=== PATIENT | female | born 1950 | race Caucasian/White ===

== ENCOUNTER → 2016-10-05 | Outpatient (REF) | payer MEDICARE ==
[~2016-10-05] MED LIST: ALEN70SO PO; ATOR1TAB21 PO; CALCTAB93 PO; CARV6.25 PO; D 50CAP PO; LEVOPOW21; MAG 64 PO; MAGN400T5 PO; VITAMIN B2
== END ==
LOC: M LAB REF 16:11
PROVIDERS: ATTEND Internal Medicine Medical Oncology
DX: C18.9 Malignant neoplasm of colon, unspecified (principal)

== ENCOUNTER → 2016-10-25 | Outpatient (CLI) | payer MEDICARE ==
--- NOTE | 2016-10-25 17:18 | REP ---
PET/CT: History: Colon cancer restaging. Comparisons: Most recent comparison PET-CT study is from May 31, 2016. This showed hypermetabolic metastatic foci in the liver, left lung, right anterior chest wall and right epicardial lymph node. Question right pleural disease. TECHNIQUE: 66 minutes following the intravenous injection of a 8.1 mCi dose of F-18 FDG, three-dimensional PET scintigraphy is acquired from the skull base to the proximal thighs. Triplanar noncontrast CT scanning is acquired through the same anatomic range for attenuation correction, and image registration with scan parameters optimized to minimize radiation exposure to the patient. PET scintigraphy and CT datasets were fused and displayed on a workstation with multiplanar and projection display capability. PET/CT Findings: PET-CT shows significant improvement. The previously noted hypermetabolic lung nodule has regressed. Maximum SUV value here is no longer hypermetabolic, 1.1. No other abnormal hypermetabolic uptake is seen within the chest. This nodule in the left upper lobe is still visible measuring 7 mm. On PET/CT from 05/31/2016, CT images it measured 10 mm. No other lung nodule is appreciated. There is some linear fibrosis or discoid atelectasis in the lower lobes. The head and neck soft tissues are unremarkable. There is an Bjddba-G-Rcxv catheter noted in place on the left. There are two small hypermetabolic foci in the liver, one anteriorly in the right lobe near the dome of the diaphragm with maximizing the value 5.0. This lesion measures 2 cm. The second hypermetabolic focus is anteriorly and laterally in the inferior aspect of the right hepatic lobe. Maximum SUV value here is 7.3 in a focus of increased uptake measuring 1.8 cm. The larger posterior segment right hepatic lobe lesion seen on the recent prior study has regressed. There is a small zone of residual hypermetabolic uptake year with maximum SUV value 3.6. No other abnormal hypermetabolic uptake is seen within the abdomen or pelvis. The previously noted lesions in the right epicardial lymph node and right chest wall are no longer apparent. Impression: Today's PET CT shows significant improvement. There are three residual foci of hypermetabolic uptake in the liver although these appear improved. The left upper lobe lesion has regressed in size and FDG avidity. Right chest wall and epicardial lymph node foci have resolved. Signed by Adama Currie MD 10/25/2016 06:40 P
== END ==
LOC: M RAD 12:24
PROVIDERS: ATTEND Internal Medicine Medical Oncology
DX: C18.9 Malignant neoplasm of colon, unspecified (principal)
CPT/HCPCS: 78815; A9552

== ENCOUNTER → 2016-11-15 | Outpatient (REF) | payer MEDICARE | LOC: M LAB REF 16:32 | PROVIDERS: ATTEND Internal Medicine Medical Oncology | DX: C18.9 Malignant neoplasm of colon, unspecified (principal) ==

== ENCOUNTER → 2016-12-11 | Outpatient (REF) | payer MEDICARE | LOC: M LAB REF 13:15 | PROVIDERS: ATTEND Internal Medicine Medical Oncology | DX: C19 Malignant neoplasm of rectosigmoid junction (principal) ==

== ENCOUNTER → 2017-01-22 | Outpatient (REF) | payer MEDICARE | LOC: M LAB REF 13:06 | PROVIDERS: ATTEND Internal Medicine Medical Oncology | DX: C20 Malignant neoplasm of rectum (principal); C18.9 Malignant neoplasm of colon, unspecified ==

== ENCOUNTER → 2017-03-05 | Outpatient (REF) | payer MEDICARE | LOC: M LAB REF 13:05 | PROVIDERS: ATTEND Internal Medicine Medical Oncology | DX: C18.9 Malignant neoplasm of colon, unspecified (principal) ==

== ENCOUNTER → 2017-03-29 | Outpatient (CLI) | payer MEDICARE ==
[~2017-03-29] MED LIST changes: +GASTROGRAFIN SOLUTION 30ML (Q9963) As Ordered ONE; +ISOVUE-370 76% 100ML VIAL (Q9967) As Ordered ONE
--- NOTE | 2017-03-29 14:32 | REP ---
CT of the chest with IV contrast: Comparison is 2015. The patients known left upper lobe lung nodule is today identified on image 35 and measures 8 mm (previously 11 mm). No other lung nodules or masses are identified. There are no pleural effusions. There is partial collapse/infiltrate in the right middle lobe as an interval change. There appears to be inspissated material in the right middle lobe bronchus as an interval change. There is discoid atelectasis versus fibro linear scarring in the right lower lobe as an interval. There is no hilar or mediastinal adenopathy. No axillary median or adenopathy. The thoracic aorta is unremarkable. Cardiac size is normal. There is no pericardial effusion. There are no lytic, blastic or destructive skeletal changes. Impression: The patient has a known left upper lobe lung nodule has decreased in size slightly. There is no atelectasis/infiltrate of the right middle lobe. There is inspissated material in the right middle lobe bronchus. There is discoid atelectasis versus scarring in the right lower lobe. Signed by Drew Segura MD 03/29/2017 02:23 P
--- NOTE | 2017-03-29 14:43 | REP ---
Clinical: Colon cancer for restaging. Technique: Axial contrast enhanced images from the lung bases to the pubic symphysis using oral and 100 ml Isovue 370 intravenous contrast material with precontrast and delayed images of the abdomen as well as coronal and sagittal re-formations. Comparison: 01/18/2016. Findings: Lung bases demonstrate right middle lobe atelectasis. Visualized heart and pericardium normal. Postsurgical changes to the liver appreciated and the previously noted hypodense lesions are not visualized on current examination. No obvious new hepatic lesion identified. Spleen, pancreas, bilateral adrenal glands and kidneys are normal. The patient is status post cholecystectomy. The enteric system is without obstruction or acute inflammatory process. Normal terminal ileum identified in the right lower quadrant. Pelvis demonstrates normal bladder and evidence for prior hysterectomy. Abdominal aorta and vasculature appears normal. Musculoskeletal structures are intact without focal osseous abnormality. No ascites. No adenopathy. No free air. Impression: 1. Right middle lobe atelectasis. 2. Postsurgical changes to the liver and previously noted hypodensities are not visualized on current exam. 3. No ascites, adenopathy, or recurrent lesion appreciated. Signed by Regis Roque MD 03/29/2017 02:34 P
== END ==
LOC: M RAD 11:43
PROVIDERS: ATTEND Internal Medicine Medical Oncology
DX: C18.9 Malignant neoplasm of colon, unspecified (principal)
CPT/HCPCS: 71260; 74178; Q9963; Q9967

== ENCOUNTER → 2017-04-02 | Outpatient (REF) | payer MEDICARE ==
[~2017-04-02] MED LIST changes: -GASTROGRAFIN SOLUTION 30ML (Q9963) As Ordered ONE; -ISOVUE-370 76% 100ML VIAL (Q9967) As Ordered ONE
== END ==
LOC: M LAB REF 12:25
PROVIDERS: ATTEND Internal Medicine Medical Oncology
DX: C18.9 Malignant neoplasm of colon, unspecified (principal)

== ENCOUNTER → 2017-04-23 | Outpatient (REF) | payer MEDICARE | LOC: M LAB REF 14:03 | PROVIDERS: ATTEND Internal Medicine Medical Oncology | DX: C18.9 Malignant neoplasm of colon, unspecified (principal) ==

== ENCOUNTER → 2017-05-21 | Outpatient (REF) | payer MEDICARE | LOC: M LAB REF 13:16 | PROVIDERS: ATTEND Internal Medicine Medical Oncology | DX: C18.9 Malignant neoplasm of colon, unspecified (principal) ==

== ENCOUNTER → 2017-05-22 | Outpatient (REF) | payer MEDICARE | LOC: M LAB REF 09:15 | PROVIDERS: ATTEND Internal Medicine Medical Oncology | DX: C18.9 Malignant neoplasm of colon, unspecified (principal) ==

== ENCOUNTER → 2017-06-11 | Outpatient (REF) | payer MEDICARE | LOC: M LAB REF 13:06 | PROVIDERS: ATTEND Internal Medicine Medical Oncology | DX: C18.9 Malignant neoplasm of colon, unspecified (principal) ==

== ENCOUNTER → 2017-06-20 | Outpatient (CLI) | payer MEDICARE ==
[~2017-06-20] MED LIST changes: +GASTROGRAFIN SOLUTION 30ML (Q9963) As Ordered ONE; +ISOVUE-370 76% 100ML VIAL (Q9967) As Ordered ONE
--- NOTE | 2017-06-20 17:20 | REP ---
CT of the chest with IV contrast: Comparison is 03/29/2017. The patients known left upper lobe lung nodule today measures 8 mm. This measured 8 mm on the comparison study. There are no other lung nodules or masses. The atelectasis in the right middle lobe identified previously has significantly improved with only minimal persisting atelectasis per inspissated material identified in the right middle lobe bronchus previously has resolved. The remainder the lung franz are clear and unchanged. There is no mediastinal, hilar or axillary lymph node enlargement. The thoracic aorta is. Cardiac size is normal. There is no pericardial effusion. There is a benign bone island in the T11 vertebral body, unchanged from studies dating to at least 08/11/2013. There are no lytic, blastic or destructive skeletal changes. Impression: There is no evidence of metastatic disease or adenopathy. The known left upper lobe lung nodule is unchanged in size but has decreased in size from 01/18/2016. The atelectasis in the right middle lobe has significantly improved. The T11 benign bone island is unchanged. Signed by rDew Segura MD 06/20/2017 05:11 P
--- NOTE | 2017-06-20 17:30 | REP ---
CT of the abdomen and pelvis without and with IV contrast, multiphase imaging: Comparison is 03/29/2079. Studies performed. Contiguous with the chest CT this same date. Using the same IV contrast bolus. The liver is initially scan without IV contrast. This is followed by dual phase contrast enhanced scanning during the arterial phase of enhancement later during the delayed phase of contrast enhancement. Surgical clips are again noted along the medial margin of the liver as previously. There is a surgical circumferential staple line in the rectosigmoid colon. This is unchanged. There are new focal low density lesions in the dome of the liver as an interval compatible with metastases. There is a small subcapsular crescentic a low density lesion in the lateral aspect of the dome of the liver, unchanged, possibly an overnight subcapsular hematoma. The pancreas and spleen are unremarkable. The adrenals and kidneys are unremarkable. The abdominal aorta is auricle. There is no retroperitoneal or mesenteric adenopathy. There is no bowel distension. Pelvis: There is no ascites or adenopathy. No bowel distension. The bladder is unremarkable. There are no lytic, blastic or destructive skeletal changes. Impression: There are new low density lesions in the dome of the liver as an interval change compatible with hepatic metastases. There are postsurgical changes as described. There is no adenopathy or ascites. Signed by Drew Segura MD 06/20/2017 05:21 P
== END ==
LOC: M RAD 13:11
PROVIDERS: ATTEND Internal Medicine Medical Oncology
DX: C18.9 Malignant neoplasm of colon, unspecified (principal); Z98.890 Other specified postprocedural states
CPT/HCPCS: 71260; 74178; 88300; Q9963; Q9967

== ENCOUNTER → 2017-06-25 | Outpatient (REF) | payer MEDICARE ==
[~2017-06-25] MED LIST changes: -GASTROGRAFIN SOLUTION 30ML (Q9963) As Ordered ONE; -ISOVUE-370 76% 100ML VIAL (Q9967) As Ordered ONE
== END ==
LOC: M LAB REF 12:39
PROVIDERS: ATTEND Internal Medicine Medical Oncology
DX: C18.9 Malignant neoplasm of colon, unspecified (principal)

== ENCOUNTER → 2017-07-09 | Outpatient (REF) | payer MEDICARE | LOC: M LAB REF 12:18 | PROVIDERS: ATTEND Internal Medicine Medical Oncology | DX: C34.90 Malignant neoplasm of unspecified part of unspecified bronchus or lung (principal) ==

== ENCOUNTER → 2017-09-21 | Outpatient (REF) | payer MEDICARE ==
[2017-09-21 15:42] LABS: ANION GAP 8 MEQ/L (8-16); BLOOD UREA NITROGEN 10 MG/DL (7-18); CALCIUM LEVEL 8.2 MG/DL (8.8-10.2); CARBON DIOXIDE LEVEL 30 MEQ/L (21-32); CHLORIDE LEVEL 102 MEQ/L (98-107); CREATININE FOR GFR 0.68 MG/DL (0.55-1.02); GLOMERULAR FILTRATION RATE > 60.0 (>45); GLUCOSE, FASTING 123 MG/DL (80-110); POTASSIUM SERUM 3.9 MEQ/L (3.5-5.1); SODIUM LEVEL 140 MEQ/L (136-145)
== END ==
LOC: M LABDRAW1 15:17
DX: I21.4 Non-ST elevation (NSTEMI) myocardial infarction (principal)

== ENCOUNTER → 2017-09-25 | Outpatient (REF) | payer MEDICARE ==
[2017-09-25 11:43] LABS: ANION GAP 8 MEQ/L (8-16); BLOOD UREA NITROGEN 13 MG/DL (7-18); CALCIUM LEVEL 8.6 MG/DL (8.8-10.2); CARBON DIOXIDE LEVEL 27 MEQ/L (21-32); CHLORIDE LEVEL 105 MEQ/L (98-107); CREATININE FOR GFR 0.85 MG/DL (0.55-1.02); GLOMERULAR FILTRATION RATE > 60.0 (>45); GLUCOSE, FASTING 112 MG/DL (80-110); POTASSIUM SERUM 4.4 MEQ/L (3.5-5.1); SODIUM LEVEL 140 MEQ/L (136-145)
== END ==
LOC: M LABDRAW1 10:39
PROVIDERS: ATTEND Surgery
DX: I21.4 Non-ST elevation (NSTEMI) myocardial infarction (principal)

== ENCOUNTER → 2017-10-23 | Outpatient (REF) | payer MEDICARE ==
[2017-10-23 13:08] LABS: HEMATOCRIT 39.7 % (36.0-47.0); HEMOGLOBIN 12.8 g/dl (12.0-16.0); MEAN CORPUSCULAR HEMOGLOBIN 30.1 pg (27.0-33.0); MEAN CORPUSCULAR HGB CONC 32.2 g/dl (32.0-36.5); MEAN CORPUSCULAR VOLUME 93.4 fl (80.0-96.0); PLATELET COUNT, AUTOMATED 148 10^3/uL (150-450); RED BLOOD COUNT 4.25 10^6/uL (4.00-5.40); RED CELL DISTRIBUTION WIDTH 14.3 % (11.5-14.5)
[2017-10-23 13:20] LABS: INR 0.98; PROTHROMBIN TIME 13.1 SECONDS (12.4-14.5)
[2017-10-23 14:01] LABS: ALBUMIN 3.3 GM/DL (3.2-5.2); ALBUMIN/GLOBULIN RATIO 0.97 (1.00-1.93); ALKALINE PHOSPHATASE 128 U/L (45-117); ALT/SGPT 17 U/L (12-78); ANION GAP 7 MEQ/L (8-16); AST/SGOT 26 U/L (7-37); BILIRUBIN,DIRECT 0.1 MG/DL (0.0-0.2); BILIRUBIN,TOTAL 0.5 MG/DL (0.2-1.0); BLOOD UREA NITROGEN 13 MG/DL (7-18); CALCIUM LEVEL 8.9 MG/DL (8.8-10.2); CARBON DIOXIDE LEVEL 29 MEQ/L (21-32); CHLORIDE LEVEL 107 MEQ/L (98-107); CREATININE FOR GFR 0.78 MG/DL (0.55-1.02); GLOMERULAR FILTRATION RATE > 60.0 (>45); GLUCOSE, FASTING 101 MG/DL (70-100); POTASSIUM SERUM 3.9 MEQ/L (3.5-5.1); SODIUM LEVEL 143 MEQ/L (136-145); TOTAL PROTEIN 6.7 GM/DL (6.4-8.2)
== END ==
LOC: M LABNEURO 09:46
DX: C18.9 Malignant neoplasm of colon, unspecified (principal); Z79.01 Long term (current) use of anticoagulants
CPT/HCPCS: 80076

== ENCOUNTER → 2017-11-26 | Outpatient (REF) | payer MEDICARE ==
[2017-11-26 13:19] LABS: BASO % 0.3 % (0.0-1.0); EOS # 0.1 10^3/uL (0.0-0.50); EOS % 2.4 % (0.0-3.0); HEMATOCRIT 39.3 % (36.0-47.0); HEMOGLOBIN 12.6 g/dl (12.0-16.0); IMMATURE GRANULOCYTE % 0.3 % (0-3.0); LYMPH # 0.5 10^3/uL (1.5-4.5); LYMPH % 9.3 % (24.0-44.0); MEAN CORPUSCULAR HEMOGLOBIN 29.5 pg (27.0-33.0); MEAN CORPUSCULAR HGB CONC 32.1 g/dl (32.0-36.5); MONO # 0.5 10^3/uL (0.0-0.8); MONO % 8.9 % (0.0-5.0); NEUTROPHILS # 4.6 10^3/uL (1.8-7.7); NEUTROPHILS % 78.8 % (36.0-66.0); PLATELET COUNT, AUTOMATED 304 10^3/uL (150-450); RED BLOOD COUNT 4.27 10^6/uL (4.00-5.40); RED CELL DISTRIBUTION WIDTH 13.4 % (11.5-14.5); WHITE BLOOD COUNT 5.8 10^3/uL (4.0-10.0)
[2017-11-26 13:52] LABS: ALBUMIN 3.1 GM/DL (3.2-5.2); ALBUMIN/GLOBULIN RATIO 0.86 (1.00-1.93); ALKALINE PHOSPHATASE 193 U/L (45-117); ALT/SGPT 21 U/L (12-78); AST/SGOT 35 U/L (7-37); BILIRUBIN,DIRECT 0.2 MG/DL (0.0-0.2); BILIRUBIN,TOTAL 0.5 MG/DL (0.2-1.0); BLOOD UREA NITROGEN 11 MG/DL (7-18); CREATININE FOR GFR 0.66 MG/DL (0.55-1.30); GLOMERULAR FILTRATION RATE > 60.0 (>45); TOTAL PROTEIN 6.7 GM/DL (6.4-8.2)
[2017-11-27 09:57] LABS: CARCINOEMBRYONIC ANTIGEN 3.3 NG/ML (<2.5)
== END ==
LOC: M LABNEURO 09:17
DX: C78.7 Secondary malignant neoplasm of liver and intrahepatic bile duct (principal)
CPT/HCPCS: 82565

== ENCOUNTER 2017-12-03 18:17 | Emergency (ER) | payer MEDICARE ==
[2017-12-03] MEDS: NS 1,000 ML IV (21:04)
[2017-12-03] MEDS: ONDANSETRON 4MG/2ML VIAL (J2405) IV (21:04)
[2017-12-03] MEDS: GASTROGRAFIN SOLUTION 30ML PO ×2 (21:11→21:15)
[2017-12-03 21:20] LABS: BASO % 0.3 % (0.0-1.0); EOS % 0.1 % (0.0-3.0); HEMATOCRIT 40.3 % (36.0-47.0); HEMOGLOBIN 13.3 g/dl (12.0-16.0); IMMATURE GRANULOCYTE % 0.3 % (0-3.0); LYMPH # 0.5 10^3/uL (1.5-4.5); LYMPH % 6.3 % (24.0-44.0); MEAN CORPUSCULAR HEMOGLOBIN 29.5 pg (27.0-33.0); MEAN CORPUSCULAR VOLUME 89.4 fl (80.0-96.0); MONO # 0.6 10^3/uL (0.0-0.8); MONO % 8.4 % (0.0-5.0); NEUTROPHILS # 6.2 10^3/uL (1.8-7.7); NEUTROPHILS % 84.6 % (36.0-66.0); PLATELET COUNT, AUTOMATED 198 10^3/uL (150-450); RED BLOOD COUNT 4.51 10^6/uL (4.00-5.40); RED CELL DISTRIBUTION WIDTH 13.4 % (11.5-14.5); WHITE BLOOD COUNT 7.3 10^3/uL (4.0-10.0)
[2017-12-03] MEDS: METOCLOPRAMIDE INJ 10MG/2ML VIAL (J2765) IV (21:30)
[2017-12-03] MEDS: diphenhydrAMINE INJ 50MG/ML VIAL (J1200) IV (21:30)
[2017-12-03 21:52] LABS: ALBUMIN 3.1 GM/DL (3.2-5.2); ALBUMIN/GLOBULIN RATIO 0.89 (1.00-1.93); ALKALINE PHOSPHATASE 178 U/L (45-117); ALT/SGPT 18 U/L (12-78); AMYLASE 50 U/L (25-115); ANION GAP 11 MEQ/L (8-16); AST/SGOT 29 U/L (7-37); BILIRUBIN,DIRECT 0.2 MG/DL (0.0-0.2); BILIRUBIN,TOTAL 0.7 MG/DL (0.2-1.0); BLOOD UREA NITROGEN 19 MG/DL (7-18); CALCIUM LEVEL 8.9 MG/DL (8.8-10.2); CARBON DIOXIDE LEVEL 26 MEQ/L (21-32); CHLORIDE LEVEL 105 MEQ/L (98-107); GLOMERULAR FILTRATION RATE > 60.0 (>45); GLUCOSE, FASTING 99 MG/DL (70-100); LIPASE 96 U/L (73-393); SODIUM LEVEL 142 MEQ/L (136-145); TOTAL PROTEIN 6.6 GM/DL (6.4-8.2)
[2017-12-03 21:52] LABS: LACTIC ACID SEPSIS PROTOCOL 1.6 MMOL/L (0.4-2.0)
[2017-12-03] MEDS ORDERED: ISOVUE-370 76% 100ML VIAL (Q9967) As Ordered (22:00)
== END 2017-12-04 00:42 | disposition home or self-care (01) ==
LOC: M ED 12-04 00:42
DX: E86.0 Dehydration (principal); I10 Essential (primary) hypertension; C18.9 Malignant neoplasm of colon, unspecified; E78.70 Disorder of bile acid and cholesterol metabolism, unspecified; Z79.890 Hormone replacement therapy; Z79.899 Other long term (current) drug therapy; Z98.0 Intestinal bypass and anastomosis status; Z88.5 Allergy status to narcotic agent; Z91.048 Other nonmedicinal substance allergy status
CPT/HCPCS: Q9963

== ENCOUNTER → 2017-12-11 | Outpatient (REF) | payer MEDICARE ==
[2017-12-11 14:29] LABS: CARCINOEMBRYONIC ANTIGEN 1.7 NG/ML (<2.5)
== END ==
LOC: M LAB REF 13:34
DX: C18.9 Malignant neoplasm of colon, unspecified (principal); C78.7 Secondary malignant neoplasm of liver and intrahepatic bile duct; C20 Malignant neoplasm of rectum; C34.90 Malignant neoplasm of unspecified part of unspecified bronchus or lung
CPT/HCPCS: 82378

== ENCOUNTER → 2017-12-26 | Outpatient (REF) | payer MEDICARE ==
[2017-12-28 09:38] LABS: CARCINOEMBRYONIC ANTIGEN 1.2 NG/ML (<2.5)
== END ==
LOC: M LAB REF 13:29
DX: C18.9 Malignant neoplasm of colon, unspecified (principal)
CPT/HCPCS: 82378

== ENCOUNTER → 2018-03-18 | Outpatient (REF) | payer MEDICARE ==
[2018-03-19 07:32] LABS: CARCINOEMBRYONIC ANTIGEN 4.8 NG/ML (<2.5)
== END ==
LOC: M LAB REF 13:15
DX: C18.7 Malignant neoplasm of sigmoid colon (principal); C78.02 Secondary malignant neoplasm of left lung; C78.7 Secondary malignant neoplasm of liver and intrahepatic bile duct
CPT/HCPCS: 82378

== ENCOUNTER → 2018-03-25 | Outpatient (REF) | payer MEDICARE ==
[2018-03-26 09:12] LABS: CARCINOEMBRYONIC ANTIGEN 5.2 NG/ML (<2.5)
== END ==
LOC: M LAB REF 12:47
DX: C18.7 Malignant neoplasm of sigmoid colon (principal); C78.02 Secondary malignant neoplasm of left lung; C78.7 Secondary malignant neoplasm of liver and intrahepatic bile duct
CPT/HCPCS: 82378

== ENCOUNTER → 2018-04-01 | Outpatient (CLI) | payer MEDICARE ==
[~2018-04-01] MED LIST changes: -ALEN70SO PO; -ATOR1TAB21 PO; -CALCTAB93 PO; -CARV6.25 PO; -D 50CAP PO; -LEVOPOW21; -MAG 64 PO; -MAGN400T5 PO; +PROHANCE 279.3MG/ML 15ML VIAL (A9576) As Ordered; -VITAMIN B2
== END ==
LOC: M RAD 17:44
DX: C18.9 Malignant neoplasm of colon, unspecified (principal); R93.2 Abnormal findings on diagnostic imaging of liver and biliary tract; R93.8 Abnormal findings on diagnostic imaging of other specified body structures
CPT/HCPCS: A9576

== ENCOUNTER → 2018-04-09 | Outpatient (CLI) | payer MEDICARE | LOC: M PLARAD 09:24 | DX: C18.9 Malignant neoplasm of colon, unspecified (principal); C78.7 Secondary malignant neoplasm of liver and intrahepatic bile duct; C78.02 Secondary malignant neoplasm of left lung; C77.1 Secondary and unspecified malignant neoplasm of intrathoracic lymph nodes | CPT/HCPCS: 78815 ==

== ENCOUNTER → 2018-04-26 | Outpatient (REF) | payer MEDICARE ==
[2018-04-26 14:13] LABS: CARCINOEMBRYONIC ANTIGEN 8.7 NG/ML (<2.5)
== END ==
LOC: M LAB REF 13:07
DX: C18.7 Malignant neoplasm of sigmoid colon (principal); C78.02 Secondary malignant neoplasm of left lung; C78.7 Secondary malignant neoplasm of liver and intrahepatic bile duct
CPT/HCPCS: 82378

== ENCOUNTER → 2018-05-09 | Outpatient (REF) | payer MEDICARE ==
[2018-05-10 10:02] LABS: CARCINOEMBRYONIC ANTIGEN 10.7 NG/ML (<2.5)
== END ==
LOC: M LAB REF 12:53
DX: C18.7 Malignant neoplasm of sigmoid colon (principal); C78.02 Secondary malignant neoplasm of left lung; C78.7 Secondary malignant neoplasm of liver and intrahepatic bile duct
CPT/HCPCS: 82378

== ENCOUNTER → 2018-06-06 | Outpatient (REF) | payer MEDICARE ==
[2018-06-07 12:08] LABS: CARCINOEMBRYONIC ANTIGEN 17.1 NG/ML (<2.5)
== END ==
LOC: M LAB REF 13:41
DX: C18.7 Malignant neoplasm of sigmoid colon (principal); C78.02 Secondary malignant neoplasm of left lung; C78.7 Secondary malignant neoplasm of liver and intrahepatic bile duct
CPT/HCPCS: 82378

== ENCOUNTER → 2018-06-11 | Outpatient (CLI) | payer MEDICARE | LOC: M PLARAD 08:27 | DX: C18.9 Malignant neoplasm of colon, unspecified (principal) | CPT/HCPCS: 78815 ==

== ENCOUNTER 2018-07-09 12:34 | Outpatient (CLI) | payer MEDICARE ==
[2018-07-09] MEDS ORDERED: ACETAMINOPHEN TAB 650MG DOSE (2X325MG) As Ordered ×2 (15:16)
[2018-07-09] MEDS: POTASSIUM CHLORIDE 10 MEQ SR TABLET PO ×2 (15:19)
[2018-07-09] MEDS: ACETAMINOPHEN TAB 650MG DOSE (2X325MG) PO ×2 (15:19)
[2018-07-09] MEDS: FUROSEMIDE 20 MG/2 ML VIAL (J1940) IV ×2 (15:20)
[2018-07-09] MEDS: FILGRASTIM 480 MCG/0.8 ML SYRINGE (J1442) SC ×2 (15:21)
[2018-07-09] MEDS: SODIUM CHLORIDE 0.9% INJ 10 ML SYR IV ×2 (15:21)
== END 2018-07-09 19:05 | disposition home or self-care (01) ==
LOC: M INFU 12:34 → M MS4PR 13:52 → M OPCLI4PR 19:05
DX: D64.9 Anemia, unspecified (principal); C18.9 Malignant neoplasm of colon, unspecified; Z88.5 Allergy status to narcotic agent; Z79.82 Long term (current) use of aspirin; Z79.899 Other long term (current) drug therapy; Z51.89 Encounter for other specified aftercare
CPT/HCPCS: 36430

== ENCOUNTER 2018-07-10 13:52 | Outpatient (CLI) | payer MEDICARE ==
[2018-07-10] MEDS: POTASSIUM CHLORIDE 10 MEQ SR TABLET PO ×2 (14:45)
[2018-07-10] MEDS: ACETAMINOPHEN TAB 650MG DOSE (2X325MG) PO ×2 (14:45)
[2018-07-10] MEDS: FUROSEMIDE 20 MG/2 ML VIAL (J1940) IV ×2 (14:46)
[2018-07-10] MEDS: SODIUM CHLORIDE 0.9% INJ 10 ML SYR IV ×2 (17:01)
== END 2018-07-10 17:15 | disposition home or self-care (01) ==
LOC: M INFU 13:52
DX: C18.9 Malignant neoplasm of colon, unspecified (principal); D64.9 Anemia, unspecified; Z88.5 Allergy status to narcotic agent; D72.819 Decreased white blood cell count, unspecified; Z51.89 Encounter for other specified aftercare
CPT/HCPCS: 36430

== ENCOUNTER → 2018-07-16 | Outpatient (REF) | payer MEDICARE | LOC: M LAB REF 11:02 | DX: Z11.9 Encounter for screening for infectious and parasitic diseases, unspecified (principal) | CPT/HCPCS: 87493 ==

== ENCOUNTER → 2018-07-18 | Outpatient (REF) | payer MEDICARE | LOC: M LAB REF 08:40 | DX: C18.9 Malignant neoplasm of colon, unspecified (principal) | CPT/HCPCS: 88300 ==

== ENCOUNTER → 2018-10-08 | Outpatient (CLI) | payer MEDICARE ==
[~2018-10-08] MED LIST changes: +ALEN70SO PO; +ASPI1TAB PO; +ATOR1TAB21 PO; +CALCTAB93 PO; +CARV6.25 PO; +COLA100C5 PO; +D 50CAP PO; +ELIQ5TAB PO; +FLUC10TA PO; +FURO20TA2 PO; +LEVO50TA5 OR; +LEVO75TA4 PO; +LEVOPOW21; +LOMO2.5T PO; +MAG 64 PO; +MAGN400T5 PO; +META28.32 PO; +METO25TA4 PO; +OMEP20CA3 PO; +ONDA4TAB5 PO; +POTA1TAB23 PO; +PRED20TA PO; +PROC1AER16 PR; +PROC2.5C PR; +PROC2.5C TOP; -PROHANCE 279.3MG/ML 15ML VIAL (A9576) As Ordered; +REGL10TA6 PO; +SLOWTAB2 PO; +SPIR-10 PO; +SPIR50TA4 PO; +VITAMIN B2
--- NOTE | 2018-10-10 15:03 | REP ---
PET/CT: History: Restaging colon carcinoma. Stage IV. Metastatic to lung and liver. Comparisons: Comparison PET-CT study June 11, 2018. Comparison CT study of the chest September 27, 2018. TECHNIQUE: 1 hour 19 minutes following the intravenous injection of a 7.9 mCi dose of F-18 FDG, three-dimensional PET scintigraphy is acquired from the skull base to the proximal thighs. Triplanar noncontrast CT scanning is acquired through the same anatomic range for attenuation correction, and image registration with scan parameters optimized to minimize radiation exposure to the patient. PET scintigraphy and CT datasets were fused and displayed on a workstation with multiplanar and projection display capability. PET/CT Findings: Head and neck soft tissue show no abnormal hypermetabolic uptake. There are multiple metastatic foci of hypermetabolic uptake in the chest. The largest of these is in the right mediastinum adjacent to the superior vena cava where there is a hypermetabolic jason mass, which measures 4.3 cm in greatest diameter. Maximum standard uptake value in this is quite high at 22.7. There is subcarinal hypermetabolic adenopathy which is smaller. Maximum standard uptake value is 7.6. There is a jason hypermetabolic uptake in the left hilus with maximum standard uptake value 9.9. Right hilar hypermetabolic uptake is seen, maximum standard uptake value 6.6. There are metastatic hypermetabolic lung nodules bilaterally with a maximum standard uptake value ranging within these up to 6.4. There is a small to moderate right pleural effusion and there is atelectasis in the right lower lobe of the lung. A left-sided Bphlbi-R-Mtjs catheter is seen. In the abdomen and pelvis, there is extensive bulky heterogeneous hypermetabolic liver involvement. Maximum standard uptake value 13.8. There is hypermetabolic infiltration involving the anterior costal margin on the right in the right upper quadrant with maximum standard uptake value 12.7 in a fairly large confluent area. There is hypermetabolic jason uptake in the celiac axis region anterior to the left adrenal with maximum standard uptake value 7.3. Right pericaval adenopathy is hypermetabolic, 7.8. There is a mesenteric hypermetabolic jason focus, maximum standard uptake value 5.6. No other abnormal hypermetabolic uptake is seen in the abdomen and pelvis. There is diffuse abdominal ascites. No abnormal skeletal hypermetabolic focus is seen. In comparison with the June 11, 2018 study, there is evidence of progression in the liver, right upper abdominal costal margin disease as well as in the mediastinal, hilar and pulmonary parenchymal disease. Impression: Evidence of significant progression as above. Electronically Signed by Adama Currie MD 10/10/2018 04:27 P
== END ==
LOC: M PLARAD 08:48
PROVIDERS: ATTEND Internal Medicine Hematology & Oncology
DX: C18.7 Malignant neoplasm of sigmoid colon (principal)
CPT/HCPCS: 78815; A9552

== ENCOUNTER 2018-10-13 14:35 | Inpatient (IN) | payer MEDICARE ==
[~2018-10-13] VITALS: Ht 162.6 cm; Wt 70.2 kg
[~2018-10-13 14:35] MED LIST changes: -LEVO75TA4 PO; -SPIR50TA4 PO
[2018-10-13] MEDS ORDERED: NS 1,000 ML IV SCH (14:56)
[2018-10-13] MEDS ORDERED: PANTOPRAZOLE 40MG INJ (PROTONIX) (C9113) IV ONE (15:45)
[2018-10-13] MEDS ORDERED: NS 500 ML IV ONE (15:45)
[2018-10-13 15:46] LABS: BASO % 0.1 % (0.0-1.0); EOS % 0.4 % (0.0-3.0); HEMATOCRIT 23.8 % (36.0-47.0); HEMOGLOBIN 7.8 g/dl (12.0-15.5); LYMPH # 0.7 10^3/uL (1.5-4.5); LYMPH % 6.7 % (24.0-44.0); MEAN CORPUSCULAR HEMOGLOBIN 29.5 pg (27.0-33.0); MEAN CORPUSCULAR HGB CONC 32.8 g/dl (32.0-36.5); MEAN CORPUSCULAR VOLUME 90.2 fl (80.0-96.0); MONO # 1.4 10^3/uL (0.0-0.8); MONO % 13.1 % (0.0-5.0); NEUTROPHILS # 8.5 10^3/uL (1.8-7.7); NEUTROPHILS % 78.8 % (36.0-66.0); PLATELET COUNT, AUTOMATED 197 10^3/uL (150-450); RED BLOOD COUNT 2.64 10^6/uL (4.00-5.40); WHITE BLOOD COUNT 10.8 10^3/uL (4.0-10.0)
[2018-10-13 15:54] LABS: INR 3.24; PROTHROMBIN TIME 33.8 SECONDS (12.1-14.4)
[2018-10-13 16:05] LABS: ALBUMIN 1.6 GM/DL (3.2-5.2); BILIRUBIN,DIRECT 1.2 MG/DL (0.0-0.2); BILIRUBIN,TOTAL 1.9 MG/DL (0.2-1.0); CALCIUM LEVEL 7.8 MG/DL (8.8-10.2); CREATININE FOR GFR 1.04 MG/DL (0.55-1.30); GLOMERULAR FILTRATION RATE 55.9 (>45); POTASSIUM SERUM 5.5 MEQ/L (3.5-5.1); TOTAL PROTEIN 5.3 GM/DL (6.4-8.2)
[2018-10-13 16:12] LABS: PARTIAL THROMBOPLASTIN TIME 45.3 SECONDS (25.4-37.6)
[2018-10-13 16:46] LABS: MAGNESIUM LEVEL 2.2 MG/DL (1.8-2.4)
--- NOTE | 2018-10-13 17:41 | ECGEPIP ---
Stationary ECG Study [facility] - ED Test Date: 2018-10-13 Pat Name: SHIV TOVAR Department: Room: - Gender: F Administration Assistant: hank : 1950 Requested By: Matilde Jacques Order Number: [id number] Reading MD: Matilde Jacques Measurements Intervals [place] Rate: 81 P: 66 ND: 160 QRS: -14 QRSD: 96 T: -7 QT: 379 QTc: 441 Interpretive Statements SINUS RHYTHM INFERIOR MYOCARDIAL INFARCTION, OF INDETERMINATE AGE POSSIBLE ANTEROLATERAL MYOCARDIAL INFARCTION, OF INDETERMINATE AGE BASELINE ARTIFACT LIMITS INTERPRETATION Electronically Signed On 10-13-2018 17:40:55 EST by Matilde Jacques
[2018-10-13] MEDS ORDERED: ELIQ5TAB PO (17:52)
[2018-10-13] MEDS ORDERED: PROC2.5C PR (17:57)
[2018-10-13] MEDS ORDERED: LEVO75TA4 PO (17:57)
[2018-10-13] MEDS ORDERED: SPIR50TA4 PO (17:59)
[2018-10-13] MEDS ORDERED: POTA1TAB23 PO (17:59)
[2018-10-13] MEDS ORDERED: EPINEPHrine 1MG/10ML SYRINGE 1.5IN As Ordered ONE (20:09)
[2018-10-13] MEDS ORDERED: MIDAZOLAM INJ 2 MG/2 ML VIAL (J2250) As Ordered ONE (20:12)
[2018-10-13] MEDS ORDERED: LIDOCAINE 2% INJ 100 MG/5 ML SDV (FOR ANES.) As Ordered ONE (20:12)
[2018-10-13] MEDS ORDERED: PROPOFOL 200 MG/20 ML VIAL As Ordered ONE (20:12)
[2018-10-13] MEDS ORDERED: ROCURONIUM BROMIDE 50 MG/5 ML VIAL As Ordered ONE (20:12)
[2018-10-13] MEDS ORDERED: fentaNYL 100 MCG/2 ML INJECTION (J3010) As Ordered ONE (20:12)
[2018-10-13] MEDS ORDERED: SUCCINYLCHOLINE 100 MG/5 ML SYRINGE (J0330) As Ordered ONE (20:12)
[2018-10-13] MEDS ORDERED: METOCLOPRAMIDE INJ 10MG/2ML VIAL (J2765) As Ordered ONE (20:13)
[2018-10-13] MEDS ORDERED: ONDANSETRON 4MG/2ML VIAL (J2405) As Ordered ONE (20:13)
[2018-10-13] MEDS ORDERED: ONDANSETRON 4MG/2ML VIAL (J2405) IV PRN (20:45)
[2018-10-13] MEDS ORDERED: LR 1,000 ML IV SCH (20:45)
[2018-10-13 22:08] VITALS: BP 109/56
[2018-10-13] MEDS: SUCRALFATE SUSP 1GM/10ML UD PO SCH (22:34)
[2018-10-13] MEDS: NS 1,000 ML IV SCH (22:35)
[2018-10-13] MEDS: PANTOPRAZOLE 40MG INJ (PROTONIX) (C9113) IV SCH (22:36)
[2018-10-13 22:43] VITALS: BP 95/51
[2018-10-13 23:00] VITALS: BP 88/48
[2018-10-13 23:15] VITALS: BP 93/49
[2018-10-14] VITALS (23 sets, daily range): BP systolic 84–109; BP diastolic 46–57
[2018-10-14 00:28] LABS: HEMATOCRIT 29.5 % (36.0-47.0); MEAN CORPUSCULAR HEMOGLOBIN 29.5 pg (27.0-33.0); MEAN CORPUSCULAR HGB CONC 33.2 g/dl (32.0-36.5); MEAN CORPUSCULAR VOLUME 88.9 fl (80.0-96.0); PLATELET COUNT, AUTOMATED 143 10^3/uL (150-450); RED BLOOD COUNT 3.32 10^6/uL (4.00-5.40); WHITE BLOOD COUNT 11.2 10^3/uL (4.0-10.0)
[2018-10-14 00:33] LABS: HEMOGLOBIN 9.8 g/dl (12.0-15.5)
[2018-10-14] MEDS: SUCRALFATE SUSP 1GM/10ML UD PO SCH ×4 (00:41→17:15)
[2018-10-14] MEDS: NS 1,000 ML IV SCH ×5 (04:02→20:34)
[2018-10-14 04:36] LABS: HEMOGLOBIN 9.4 g/dl (12.0-15.5); MEAN CORPUSCULAR HEMOGLOBIN 29.6 pg (27.0-33.0); MEAN CORPUSCULAR HGB CONC 32.4 g/dl (32.0-36.5); MEAN CORPUSCULAR VOLUME 91.2 fl (80.0-96.0); PLATELET COUNT, AUTOMATED 135 10^3/uL (150-450); RED BLOOD COUNT 3.18 10^6/uL (4.00-5.40); WHITE BLOOD COUNT 10.6 10^3/uL (4.0-10.0)
[2018-10-14 04:53] LABS: BLOOD UREA NITROGEN 35 MG/DL (7-18); CALCIUM LEVEL 7.1 MG/DL (8.8-10.2); CARBON DIOXIDE LEVEL 18 MEQ/L (21-32); CHLORIDE LEVEL 108 MEQ/L (98-107); CREATININE FOR GFR 0.83 MG/DL (0.55-1.30); GLOMERULAR FILTRATION RATE > 60.0 (>45); GLUCOSE, FASTING 80 MG/DL (70-100); POTASSIUM SERUM 4.6 MEQ/L (3.5-5.1); SODIUM LEVEL 136 MEQ/L (136-145)
[2018-10-14] MEDS ORDERED: LEVOTHYROXINE 50MCG TABLET (0.05MG) PO SCH (06:00)
[2018-10-14] MEDS ORDERED: ONDANSETRON 4MG/2ML VIAL (J2405) IV PRN (07:45)
[2018-10-14] MEDS: PANTOPRAZOLE 40MG INJ (PROTONIX) (C9113) IV SCH ×2 (08:51→20:34)
--- NOTE | 2018-10-14 11:24 | HPE ---
DATE OF ADMISSION: 10/13/2018 PRIMARY CARE PHYSICIAN: Dr. Oscar ONCOLOGIST: Dr. Ana Sandoval ATTENDING PHYSICIAN: Dr. Zechariah Jansen CHIEF COMPLAINT: Hematemesis, recent left upper extremity deep venous thrombosis (DVT). HISTORY: Ngoc Yoon, a 68-year-old patient of Dr. Oscar, is being treated by Dr. Sandoval for stage IV colon cancer metastatic to the lung and liver. She has developed extensive left upper extremity DVT, which was diagnosed on 10/10/2018 with an upper extremity Duplex scan done at [facility] (report indicates extensive DVT, left jugular subclavian axillary and brachial veins with involvement of left cephalic vein). She is started on Eliquis for this. This morning she was nauseated. She went to the bathroom. She vomited profuse amounts of bright red blood. She said she has had bright red blood hematemesis during the course of the day. As noted above, she has metastatic colon cancer, being followed by Dr. Sandoval. She had a CT scan of the chest done at [facility] on 10/10/2018, shows multiple bilateral pulmonary nodules that increased in size. Mild bilateral hilar and subcarinal adenopathy has also increased in size. Stable metastatic disease of the liver. Patient's colon cancer is BRAF negative, KRAS negative and SHEA negative. Patient has been taking Stivarga, which has been held recently due to profuse diarrhea. Dr. Sandoval's office note from 09/16/2018 notes that the patient has very few options remaining for any of the standard therapies, as she is negative for molecular markers and that she mentioned considering clinical trial for the patient or cyber knife therapy for palliation of some of the metastases. I did find a PET scan from 10/08/2018 that showed progression in the liver, right upper abdominal costal margin, as well as mediastinal hilar and pulmonary parenchymal disease. Patient has no past history of ulcer disease, has not had an esophagogastroduodenoscopy (EGD). PAST MEDICAL HISTORY: Shows: 1. Hypothyroidism. 2. Hyperlipidemia. 3. Chronic constipation. 4. History of supraventricular tachycardia. 5. Metabolic disorders with hypokalemia and hypomagnesemia. 6. She has been having increasing fluid retention and has been on escalating doses of furosemide and spironolactone from her primary provider. 7. Her original diagnosis was 11/08/2010. ALLERGIES: CODEINE, MORPHINE, TAPE. FAMILY HISTORY: Positive for heart disease, hypertension, hyperlipidemia and diabetes. SOCIAL HISTORY: . 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 Nonsmoker, having quit 50 years ago. PAST SURGICAL HISTORY: 1. Lateral tubal ligation. 2. Hysterectomy. 3. Lumpectomy times two. 4. Multiple abdominal surgeries with colon resections. 5. Liver resection 03/2015, again 03/2016, with margins positive for carcinoma. REVIEW OF SYSTEMS: As above, otherwise negative. PHYSICAL EXAMINATION: VITAL SIGNS: Per flow sheet. Systolic pressure is in the 90s. The most recent office note from her primary provider from 10/02/2018 has a systolic pressure of 108. The last time she was in Dr. Sandoval's office, her systolic pressure was 112. GENERAL APPEARANCE: Pale. Uncomfortable. Lying in bed. HEENT: Unremarkable. LUNGS: Decreased breath sounds, but clear. HEART: Regular rate and rhythm. No murmur. ABDOMEN: Soft, tender over her abdominal incisions, which is chronic. No masses. No ascites. EXTREMITIES: No clubbing or cyanosis. 1+ peripheral edema. NEUROLOGICAL EXAM: Nonfocal. LABORATORIES: White count 11.8, hemoglobin 7.8 (was 9.6 on 09/16/2018), platelets 197. Sodium 132, potassium 5.5, BUN 34, creatinine 1.0, glucose 106, calcium 7.8. Total bilirubin 1.9, alkaline phosphatase 385. She is on Eliquis. She had an INR drawn, it was 3.2. IMPRESSION: 1. Hematemesis. Patient will admitted to an intensive care unit (ICU) bed. Intravenous (IV) Protonix has been ordered. Dr. Martin from GI has been consulted. We discussed the case. He will assess her for possible need for urgent endoscopy tonight. She is on direct oral anticoagulant with no reversal agent available. Patient signed consent for blood transfusion. First transfusion has been ordered. Two units of packed red blood cells have been ordered initially, with serial complete blood counts (CBCs) to guide transfusion. Normal saline has been ordered. Initial bolus was normal saline at 200 per hour. 2. Recent left upper extremity DVT diagnosed four days ago. Eliquis has been held. Case discussed with Dr. Cannon who is covering Dr. Sandoval. She is not aware of a reversal agent available here. She will be at risk for postphlebitic symptoms in her left arm without an anticoagulant on board, but with upper GI bleeding, it obviously needs to be held. 3. Widely metastatic stage IV colon cancer with progression on recent CT and PET scan. Treatment plan per Dr. Sandoval. 4. Hypothyroidism. Continue current dose of levothyroxine. 5. Hyperlipidemia. Hold the atorvastatin. Statin therapy might be a bit optimistic at this point. Dr. Jansen will assume her care in the morning.
--- NOTE | 2018-10-14 12:18 | CR ---
DATE OF CONSULTATION: 10/13/2018 This is a 60-year-old white female who presented to the emergency room with acute onset of hematemesis starting this morning. The patient has a long 8-year history of colon cancer with metastatic disease to the liver and lung. She has had at least three of the resection for metastatic tumors. She has had several problems with deep venous thromboses (DVTs) in indwelling catheters. She has been on anticoagulation in the past. Recently she was started on Lovenox approximately two days ago and yesterday, the patient was started on Eliquis for apparent repeat DVT and her upper chest area. She was doing well till this morning when she started having two episodes of hematemesis, bright red blood. No complaints of melena, hematochezia or bright red blood per rectum. The patient has been seen by Dr. Fisher in the [facility] for her treatment for her colon cancer. PAST MEDICAL HISTORY: 1. Positive for metastatic colon cancer 2. The patient has had multiple resection for a metastatic cancer to liver. SOCIAL HISTORY: Cigarettes, alcohol none. REVIEW OF SYSTEMS: Not contributory to the acute problem. PHYSICAL EXAMINATION: General: She is a thin white female in no obvious acute distress. Appears stated age. Chest is clear to auscultation. Cardiovascular exam showed regular rhythm. No gallops. Normal physiologica split, S1, S2. Abdomen: Soft, nontender. No masses, guarding, rebound, hepatosplenomegaly. Bowel sounds positive. LABORATORY STUDIES: This admission showed a white count of 10,800, hemoglobin and hematocrit 7.8 and 23.8. The patient is being transfused 2 units packed cells. Her INR on admission was 3.24. No imaging studies were performed. The patient's chemistry on admission showed a potassium of 5.5. Liver functions were basically normal alkaline phosphatase 285, bilirubin 1.9, albumin 1.6. ANALYSIS: Acute upper GI bleed of unknown etiology in a patient who has been recently started on Eliquis for deep venous thrombosis in the chest. PLAN: The plan will be to perform upper endoscopy with possible therapy as needed.
--- NOTE | 2018-10-14 12:22 | ROOR ---
Patient Name: Ngoc Yoon Procedure Date: 10/13/2018 7:46 PM Date of : 1950 Age: 68 Gender: Female Note Status: Finalized Procedure: Upper GI endoscopy + Heater Probe + 1:10,000 Epinephrine Indications: Active gastrointestinal bleeding Providers: Lei Martin MD Referring MD: Naun Aguilar MD Requesting Provider: Medicines: Monitored Anesthesia Care Complications: No immediate complications. Procedure: Pre-Anesthesia Assessment: - The heart rate, respiratory rate, oxygen saturations, blood pressure, adequacy of pulmonary ventilation, and response to care were monitored throughout the procedure. The Endoscope was introduced through the mouth, and advanced to the second part of duodenum. The upper GI endoscopy was accomplished without difficulty. The patient tolerated the procedure well. Findings: The Z-line was regular and was found 35 cm from the incisors. One non-bleeding cratered gastric ulcer with no stigmata of bleeding was found in the prepyloric region of the stomach. Localized mild inflammation characterized by congestion (edema) and erythema was found in the gastric antrum. One non-bleeding cratered duodenal ulcer with adherent clot was found in the first portion of the duodenum. Area was successfully injected with 4 mL of a 1:10,000 solution of epinephrine for hemostasis. Coagulation for hemostasis using heater probe was successful. The exam was otherwise without abnormality. Impression: - Z-line regular, 35 cm from the incisors. - Non-bleeding gastric ulcer with no stigmata of bleeding. - Gastritis. - One non-bleeding duodenal ulcer with adherent clot. Injected. Treated with a heater probe. - The examination was otherwise normal. - No specimens collected. - The examination was otherwise normal. Recommendation: - Return patient to ICU for ongoing care. - The findings and recommendations were discussed with the patient's family. Lei Martin MD Lei Martin MD 10/14/2018 12:21:44 PM This report has been signed electronically. Number of Addenda: 0 Note Initiated On: 10/13/2018 7:46 PM Estimated Blood Loss: Estimated blood loss: none.
[2018-10-14 12:58] LABS: HEMATOCRIT 31.5 % (36.0-47.0); MEAN CORPUSCULAR HGB CONC 31.7 g/dl (32.0-36.5); MEAN CORPUSCULAR VOLUME 91.3 fl (80.0-96.0); PLATELET COUNT, AUTOMATED 158 10^3/uL (150-450); RED BLOOD COUNT 3.45 10^6/uL (4.00-5.40); WHITE BLOOD COUNT 12.1 10^3/uL (4.0-10.0)
--- NOTE | 2018-10-14 15:12 | IPNPDOC ---
Date Seen The patient was seen on 10/14/18. Progress Note SUBJECTIVE: Patient is a 68-year-old female with upper gastrointestinal bleeding. Patient evaluated at bedside this morning. She had initially presented with bright red emesis that continued throughout the day. Also recently diagnosed with an extensive left upper extremity deep venous thrombosis on 10/10/2018 and was started on Eliquis. 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 Has undergone hepatectomy and hepatic embolization as well as multiple rounds of chemotherapy. Was unable to tolerate her most recent chemotherapy treatment. Patient states that she has not had any further episodes of emesis. She is not short of breath, having chest pain, feeling nauseous or vomiting. OBJECTIVE PHYSICAL EXAMINATION: VITAL SIGNS: Please see below. GENERAL: Petite and pale female, appears to be resting comfortably in hospital bed, alert and conversant, answers questions appropriately, no acute distress. HEENT: Atraumatic, normocephalic, PERRL, EOMI, oral mucosa appears pink and moist, nasal septum appears midline, nares are patent. CARDIOVASCULAR: Regular rate and rhythm, normal S1 and S2, no murmur, rub, click. RESPIRATORY: Clear to auscultation bilaterally, adequate inspiratory and expiratory airway excursion, symmetric airway entry, no focal consolidations, no wheeze, rhonchi, crackles. ABDOMINAL: Flat, soft, non-tender to palpation, non-distended, midline healed surgical incision, no guarding, no rebound, no organomegaly, bowel sounds diminished throughout. EXTREMITIES: No clubbing, no cyanosis, peripheral pulses equal and symmetrical, +2, no peripheral edema. NEUROLOGICAL: No focal neurological deficits. PSYCHOLOGICAL: Mood and affect appropriate. LABORATORY DATA, IMAGING STUDIES, MICROBIOLOGY: Please see below. Left upper extremity duplex ultrasound on 10/14/2018 - completed, report pending. DVT prophylaxis ordered?: TEDs sequentials, knee-high compression. ASSESSMENT AND PLAN: This is a 68-year-old female with upper gastrointestinal bleeding with underlying metastatic colon adenocarcinoma and upper extremity deep venous thrombosis. PROBLEMS: 1. Acute upper gastrointestinal bleeding with acute blood loss anemia: Hemoglobin has stabilized to 10 from 7.8. History of metastatic colon whit nocarcinoma to lung and liver with recent diagnosis of left upper extremity deep venous thrombosis. Was on Eliquis which has been discontinued. Risk of TIA/CVA discussed with patient. Status-post 2 units of packed red blood cells. Gastroenterology consulted. Upper endoscopy performed with findings of a "non- bleeding gastric ulcer with no stigmata of bleeding. Gastritis. One non- bleeding duodenal ulcer with adherent clot. Injected. Treated with a heater probe." Continue with Protonix 40mg IV twice daily and Sucralfate 1gm by mouth every six hours. May advance diet as tolerated starting with clear liquids. Will restart Atorvastatin. Recommend holding anticoagulants for at least 7 days before restarting. 2. Electrolyte derangements: Hyponatremia has corrected. Hyperkalemia has corrected. Will hold potassium supplementation for the time being. Corrected calcium is 9. No supplementation required. 3. Elevated INR: Monitor for signs of continued bleeding. Isolated AST elevation. 4. Direct hyperbilirubinemia: Likely secondary to underlying metastatic colon adenocarcinoma to liver and lung. 5. Upper extremity deep venous thrombosis: Recent diagnosis of left upper extremity deep venous thrombosis and started on Eliquis. However, secondary to upper gastrointestinal bleeding Eliquis and Aspirin have been discontinued. Hold anticoagulation for at least 7 days. Patient at increased risk for TIA/CVA which has been discussed with patient. 6. Hypotension: Fluid responsive for the time being. Holding Furosemide, Metoprolol, and Spironolactone. 7. Gastroesophageal reflux disease: Patient takes Omeprazole at home. Currently have patient on Protonix 40mg IV twice daily and Sucralfate. 8. Hypothyroidism: Patient takes Levothyroxine 75ug by mouth daily. Will continue this dose. 9. Metastatic colon adenocarcinoma to liver and lung: Hematology/oncology consulted. Discussed end-of-life care and goals with patient. She is DNR/DNI. Patient has indicated that ideally she would like to pass in her sleep and that she would prefer not to be in the hospital. Have discussed with patient that hospice may be an appropriate avenue of care, but patient has stated that she does not want to "give in too soon." She has been on multiple chemotherapeutic agents and was unable to tolerate the most recent chemotherapeutic agent, Stivarga. According to hematology/oncology's note from 08/2018 patient may be a candidate for a clinical trial. DISPOSITION: Pending clinical improvement in hemodynamic status. VS, I&O, 24H, Fishbone Vital Signs/I&O Vital Signs Date Time Temp Pulse Resp B/P (MAP) Pulse Ox O2 Delivery O2 Flow Rate FiO2 10/14/18 10:00 78 18 99/50 (66) 96 Room Air 10/14/18 08:00 98.1 10/13/18 21:15 2 I&O- Last 24 Hours up to 6 AM 10/14/18 06:00 Intake Total 2150 ml Output Total 350 ml Balance 1800 ml Laboratory Data 24H LABS Laboratory Tests 2 10/13/18 15:03: Immature Granulocyte % (Auto) 0.9, White Blood Count 10.8H, Red Blood Count 2.64L, Hemoglobin 7.8L, Hematocrit 23.8L, Mean Corpuscular Volume 90.2, Mean Corpuscular Hemoglobin 29.5, Mean Corpuscular Hemoglobin Concent 32.8, Red Cell Distribution Width 17.8H, Platelet Count 197, Neutrophils (%) (Auto) 78.8H, Lymphocytes (%) (Auto) 6.7L, Monocytes (%) (Auto) 13.1H, Eosinophils (%) (Auto) 0.4, Basophils (%) (Auto) 0.1, Neutrophils # (Auto) 8.5H, Lymphocytes # (Auto) 0.7L, Monocytes # (Auto) 1.4H, Eosinophils # (Auto) 0.0, Basophils # (Auto) 0.0, Nucleated Red Blood Cells % (auto) 0.0, Prothrombin Time 33.8H, Prothromb Time International Ratio 3.24, Activated Partial Thromboplast Time 45.3H, Anion Gap 11, Glomerular Filtration Rate 55.9, Calcium Level 7.8L, Magnesium Level 2.2, Aspartate Amino Transf (AST/SGOT) 69H, Alanine Aminotransferase (ALT/SGPT) 28, Alkaline Phosphatase 385H, Total Bilirubin 1.9H, Direct Bilirubin 1.2H, Total Protein 5.3L, Albumin 1.6L, Albumin/Globulin Ratio 0.43L, Lipase 151 10/13/18 16:43: Whole Blood Ionized Calcium 4.3L 10/13/18 23:52: Nucleated Red Blood Cells % (auto) 0.0 10/14/18 04:04: Nucleated Red Blood Cells % (auto) 0.0, Anion Gap 10, Glomerular Filtration Rate > 60.0, Calcium Level 7.1L, Blood Urea Nitrogen 35H, Creatinine 0.83, Sodium Level 136, Potassium Level 4.6, Chloride Level 108H, Carbon Dioxide Level 18L 10/14/18 12:29: Nucleated Red Blood Cells % (auto) 0.0 CBC/BMP Laboratory Tests 10/13/18 15:03 Red Blood Count 2.64 L, Mean Corpuscular Volume 90.2, Mean Corpuscular Hemoglobin 29.5, Mean Corpuscular Hemoglobin Concent 32.8, Red Cell Distribution Width 17.8 H, Neutrophils (%) (Auto) 78.8 H, Lymphocytes (%) (Auto) 6.7 L, Monoc ytes (%) (Auto) 13.1 H, Eosinophils (%) (Auto) 0.4, Basophils (%) (Auto) 0.1, Neutrophils # (Auto) 8.5 H, Lymphocytes # (Auto) 0.7 L, Monocytes # (Auto) 1.4 H, Eosinophils # (Auto) 0.0, Basophils # (Auto) 0.0 10/13/18 23:52 Red Blood Count 3.32 L, Mean Corpuscular Volume 88.9, Mean Corpuscular Hemoglobin 29.5, Mean Corpuscular Hemoglobin Concent 33.2, Red Cell Distribution Width 16.4 H 10/14/18 04:04 Red Blood Count 3.18 L, Mean Corpuscular Volume 91.2, Mean Corpuscular Hemoglobin 29.6, Mean Corpuscular Hemoglobin Concent 32.4, Red Cell Distribution Width 16.6 H, Calcium Level 7.1 L 10/14/18 12:29 Red Blood Count 3.45 L, Mean Corpuscular Volume 91.3, Mean Corpuscular Hemoglobin 29.0, Mean Corpuscular Hemoglobin Concent 31.7 L, Red Cell Distribution Width 17.1 H DENA THOMAS DO Oct 14, 2018 15:12
--- NOTE | 2018-10-14 15:51 | REP ---
Left upper extremity duplex venous ultrasound: History: History of left upper extremity venous thrombosis. Comparison study October 10, 2018 from [place] [facility] imaging demonstrates diffuse of venous thrombosis involving the left jugular, subclavian, axillary, and brachial veins as well as a cephalic vein. Sonographic findings today: Real time scanning demonstrates occlusive thrombosis of the proximal internal jugular vein, left subclavian vein, left axillary vein segment, and proximal basilic vein. There is thrombus in the proximal brachial vein. The mid brachial veins appear to be patent today. Cephalic vein is patent. Impression: Occlusive thrombosis of the left subclavian, proximal internal jugular, left axillary, proximal brachial, and basilic veins. The mid brachial veins are patent. Electronically Signed by Adama Currie MD 10/14/2018 03:42 P
[2018-10-14] MEDS ORDERED: ANUSOL HC CREAM 30GM PR PRN (16:15)
[2018-10-14 18:21] LABS: HEMATOCRIT 34.1 % (36.0-47.0); HEMOGLOBIN 10.5 g/dl (12.0-15.5); MEAN CORPUSCULAR HEMOGLOBIN 29.2 pg (27.0-33.0); MEAN CORPUSCULAR HGB CONC 30.8 g/dl (32.0-36.5); PLATELET COUNT, AUTOMATED 147 10^3/uL (150-450); RED BLOOD COUNT 3.59 10^6/uL (4.00-5.40); WHITE BLOOD COUNT 11.9 10^3/uL (4.0-10.0)
[2018-10-14] MEDS: ATORVASTATIN 20 MG TAB PO SCH (20:34)
[2018-10-15] VITALS (15 sets, daily range): BP systolic 86–122; BP diastolic 48–72
[2018-10-15] MEDS: SUCRALFATE SUSP 1GM/10ML UD PO SCH ×4 (00:04→18:04)
[2018-10-15 00:21] LABS: HEMATOCRIT 27.9 % (36.0-47.0); HEMOGLOBIN 9.1 g/dl (12.0-15.5); MEAN CORPUSCULAR HEMOGLOBIN 29.7 pg (27.0-33.0); MEAN CORPUSCULAR HGB CONC 32.6 g/dl (32.0-36.5); MEAN CORPUSCULAR VOLUME 91.2 fl (80.0-96.0); PLATELET COUNT, AUTOMATED 142 10^3/uL (150-450); RED BLOOD COUNT 3.06 10^6/uL (4.00-5.40); WHITE BLOOD COUNT 10.8 10^3/uL (4.0-10.0)
[2018-10-15] MEDS: NS 1,000 ML IV SCH ×3 (01:46→10:30)
[2018-10-15 04:44] LABS: HEMATOCRIT 26.4 % (36.0-47.0); HEMOGLOBIN 8.4 g/dl (12.0-15.5); MEAN CORPUSCULAR HEMOGLOBIN 28.9 pg (27.0-33.0); MEAN CORPUSCULAR HGB CONC 31.8 g/dl (32.0-36.5); MEAN CORPUSCULAR VOLUME 90.7 fl (80.0-96.0); PLATELET COUNT, AUTOMATED 132 10^3/uL (150-450); RED BLOOD COUNT 2.91 10^6/uL (4.00-5.40); WHITE BLOOD COUNT 8.9 10^3/uL (4.0-10.0)
[2018-10-15 04:58] LABS: BLOOD UREA NITROGEN 33 MG/DL (7-18); CARBON DIOXIDE LEVEL 17 MEQ/L (21-32); CHLORIDE LEVEL 110 MEQ/L (98-107); GLOMERULAR FILTRATION RATE > 60.0 (>45); GLUCOSE, FASTING 91 MG/DL (70-100); POTASSIUM SERUM 4.3 MEQ/L (3.5-5.1); SODIUM LEVEL 138 MEQ/L (136-145)
[2018-10-15] MEDS: LEVOTHYROXINE 75MCG TABLET (0.075MG) PO SCH (05:00)
--- NOTE | 2018-10-15 09:19 | REP ---
Chest one-view HISTORY: Shortness of breath Comparison: CT ANGIO 10/10/2018 Parenchymal density is present in the right lower lung consistent with atelectasis or infiltrate. A moderate size right pleural effusion is present. Ill-defined parenchymal nodules are present in the left lung. A small left pleural effusion is present. The heart is normal in size. The pulmonary vasculature is normal in appearance. An [id number] catheter is present. Impression: 1. Right lower lobe atelectasis or infiltrate. 2. Moderate size right and small left pleural effusions. 3. There are ill-defined parenchymal nodules in the left lung. Electronically Signed by Colby Swan MD 10/15/2018 09:10 A
[2018-10-15] MEDS: PANTOPRAZOLE 40MG INJ (PROTONIX) (C9113) IV SCH ×2 (10:18→20:18)
[2018-10-15] MEDS: METOPROLOL TART 12.5 MG PER 1/2 TAB PO SCH ×2 (11:41→20:18)
[2018-10-15] MEDS ORDERED: FUROSEMIDE 40 MG/4 ML VIAL (J1940) IV ONE ×2 (12:00→18:00)
[2018-10-15 12:34] LABS: HEMATOCRIT 32.1 % (36.0-47.0); HEMOGLOBIN 10.4 g/dl (12.0-15.5); MEAN CORPUSCULAR HEMOGLOBIN 30.1 pg (27.0-33.0); MEAN CORPUSCULAR HGB CONC 32.4 g/dl (32.0-36.5); MEAN CORPUSCULAR VOLUME 92.8 fl (80.0-96.0); PLATELET COUNT, AUTOMATED 146 10^3/uL (150-450); RED BLOOD COUNT 3.46 10^6/uL (4.00-5.40)
--- NOTE | 2018-10-15 16:03 | IPNPDOC ---
Date Seen The patient was seen on 10/15/18. Progress Note SUBJECTIVE: Patient is a 68-year-old female with upper gastrointestinal bleeding. Patient evaluated at bedside this morning. She is finishing breakfast. She states that she has increasing lower extremity swelling and is feeling more short of breath. She is no longer vomiting up blo od and the passing of bright red blood in her stool has not recurred. OBJECTIVE PHYSICAL EXAMINATION: VITAL SIGNS: Please see below. GENERAL: Petite and pale female, sitting on the edge of the bed eating breakfast, alert and conversant, answers questions appropriately, no acute distress. HEENT: Atraumatic, normocephalic, PERRL, EOMI, oral mucosa appears pink and moist, nasal septum appears midline, nares are patent. CARDIOVASCULAR: Regular rate and rhythm, normal S1 and S2, no murmur, rub, click. RESPIRATORY: Crackles appreciated in the left lower lobe, significantly diminished breath sounds appreciated over the right lower lobe, clear to auscultation in the bilateral upper lung lobes, no wheeze or rhonchi. ABDOMINAL: Flat, soft, non-tender to palpation, non-distended, midline healed surgical incision, no guarding, no rebound, no organomegaly, bowel sounds diminished throughout. EXTREMITIES: No clubbing, no cyanosis, peripheral pulses equal and symmetrical, +2, +2 peripheral edema. NEUROLOGICAL: No focal neurological deficits. PSYCHOLOGICAL: Mood and affect appropriate. LABORATORY DATA, IMAGING STUDIES, MICROBIOLOGY: Please see below. Left upper extremity duplex ultrasound on 10/14/2018 - Occlusive thrombosis of the left subclavian, proximal internal jugular, left axillary, proximal brachial, and basilic veins. The mid brachial veins are patent. Portable chest x-ray on 10/15/2018 - Right lower lobe atelectasis or infiltrate. Moderate size right and small left pleural effusions. There are ill-defined parenchymal nodules in the left lung. DVT prophylaxis ordered?: TEDs sequentials, knee-high compression. ASSESSMENT AND PLAN: This is a 68-year-old female with upper gastrointestinal bleeding with underlying metastatic colon adenocarcinoma and upper extremity deep venous thrombosis. PROBLEMS: 1. Lower extremity edema with shortness of breath: Question cor pulmonale vs. CHF. Patient takes Lasix 40mg by mouth twice daily at home. Provided one-time dose of Lasix 40mg IV. Could administer second dose of Lasix this evening for continued symptoms of shortness of breath and lower extremity edema. Repeat chest x-ray in the morning. 2. Acute upper gastrointestinal bleeding with acute blood loss anemia: Hemoglobin has stabilized. History of metastatic colon adenocarcinoma to lung and liver with recent diagnosis of left upper extremity deep venous thrombosis. Was on Eliquis which has been discontinued. Risk of TIA/CVA discussed with patient. Status-post 2 units of packed red blood cells. Gastroenterology consulted. Upper endoscopy performed with findings of a "non-bleeding gastric ulcer with no stigmata of bleeding. Gastritis. One non-bleeding duodenal ulcer with adherent clot. Injected. Treated with a heater probe." Continue with Protonix 40mg IV twice daily and Sucralfate 1gm by mouth every six hours. May advance diet as tolerated. Continue Atorvastatin. Recommend holding anticoagulants for at least 7 days before restarting. Would consider restarting low molecular weight Heparin for DVT management. 3. Electrolyte derangements: Resolved. 4. Elevated INR: Monitor for signs of continued bleeding. Isolated AST elevation. 5. Direct hyperbilirubinemia: Likely secondary to underlying metastatic colon adenocarcinoma to liver and lung. 6. Upper extremity deep venous thrombosis: Recent diagnosis of left upper extremity deep venous thrombosis and started on Eliquis. However, secondary to upper gastrointestinal bleeding Eliquis and Aspirin have been discontinued. Hold anticoagulation for at least 7 days. Patient at increased risk for TIA/CVA which has been discussed with patient. 7. Hypotension: Resolved. 8. Hypertension: Have restarted Metoprolol. Spironolactone and scheduled Lasix remain on hold. Will reassess daily. 9. Gastroesophageal reflux disease: Patient takes Omeprazole at home. Currently have patient on Protonix 40mg IV twice daily and Sucralfate. 10. Hypothyroidism: Patient takes Levothyroxine 75ug by mouth daily. Will continue this dose. 11. Metastatic colon adenocarcinoma to liver and lung: Hematology/oncology consulted. Discussed end-of-life care and goals with patient. She is DNR/DNI. Patient has indicated that ideally she would like to pass in her sleep and that she would prefer not to be in the hospital. Have discussed with patient that hospice may be an appropriate avenue of care, but patient has stated that she does not want to "give in too soon." She has been on multiple chemotherapeutic agents and was unable to tolerate the most recent chemotherapeutic agent, Stivarga. According to hematology/oncology's note from 08/2018 patient may be a candidate for a clinical trial. Patient has requested Hospice consultation. DISPOSITION: Hospice consulted. Clinical improvement in edema and pleural effusion. VS, I&O, 24H, Fishbone Vital Signs/I&O Vital Signs Date Time Temp Pulse Resp B/P (MAP) Pulse Ox O2 Delivery O2 Flow Rate FiO2 10/15/18 14:00 84 16 105/50 (68) 98 Room Air 10/15/18 12:00 98.8 10/13/18 21:15 2 I&O- Last 24 Hours up to 6 AM 10/15/18 06:00 Intake Total 4690 ml Output Total 1000 ml Balance 3690 ml Laboratory Data 24H LABS Laboratory Tests 2 10/14/18 18:02: Nucleated Red Blood Cells % (auto) 0.0 10/15/18 00:06: Nucleated Red Blood Cells % (auto) 0.0 10/15/18 04:11: Nucleated Red Blood Cells % (auto) 0.0, Anion Gap 11, Glomerular Filtration Rate > 60.0, Blood Urea Nitrogen 33H, Creatinine 0.80, Sodium Level 138, Potassium Level 4.3, Chloride Level 110H, Carbon Dioxide Level 17L, Calcium Level 7.0L 10/15/18 12:17: Nucleated Red Blood Cells % (auto) 0.0 CBC/BMP Laboratory Tests 10/14/18 18:02 Red Blood Count 3.59 L, Mean Corpuscular Volume 95.0, Mean Corpuscular Hemoglobin 29.2, Mean Corpuscular Hemoglobin Concent 30.8 L, Red Cell Distribution Width 17.2 H 10/15/18 00:06 Red Blood Count 3.06 L, Mean Corpuscular Volume 91.2, Mean Corpuscular Hemoglobin 29.7, Mean Corpuscular Hemoglobin Concent 32.6, Red Cell Distribution Width 17.0 H 10/15/18 04:11 Red Blood Count 2.91 L, Mean Corpuscular Volume 90.7, Mean Corpuscular Hemoglobin 28.9, Mean Corpuscular Hemoglobin Concent 31.8 L, Red Cell Distrib ution Width 16.9 H, Calcium Level 7.0 L 10/15/18 12:17 Red Blood Count 3.46 L, Mean Corpuscular Volume 92.8, Mean Corpuscular Hemoglobin 30.1, Mean Corpuscular Hemoglobin Concent 32.4, Red Cell Distribution Width 17.2 H DENA THOMAS DO Oct 15, 2018 16:03
[2018-10-15] MEDS: ACETAMINOPHEN TAB 650MG DOSE (2X325MG) PO PRN (16:45)
[2018-10-15 17:41] LABS: CALCIUM LEVEL 7.5 MG/DL (8.8-10.2); CREATININE FOR GFR 1.08 MG/DL (0.55-1.30); GLOMERULAR FILTRATION RATE 53.5 (>45); MAGNESIUM LEVEL 1.9 MG/DL (1.8-2.4); POTASSIUM SERUM 3.4 MEQ/L (3.5-5.1); THYROID STIMULATING HORMONE 9.65 uIU/ML (0.358-3.740)
[2018-10-15] MEDS ORDERED: MAG SULF 1GM/100ML (MAG RUN) 1 GM in APPROPRIATE DILUENT 1 EA IV ONE (18:00)
[2018-10-15] MEDS ORDERED: POTASSIUM CHLORIDE 10 MEQ SR TABLET PO ONE (18:00)
[2018-10-15 18:34] LABS: HEMATOCRIT 34.3 % (36.0-47.0); HEMOGLOBIN 10.5 g/dl (12.0-15.5)
[2018-10-15] MEDS: ATORVASTATIN 20 MG TAB PO SCH (20:18)
[2018-10-15 23:54] LABS: HEMATOCRIT 28.1 % (36.0-47.0)
[2018-10-16] VITALS (7 sets, daily range): BP systolic 88–114; BP diastolic 51–69
[2018-10-16] MEDS: SUCRALFATE SUSP 1GM/10ML UD PO SCH ×5 (00:38→23:49)
[2018-10-16] MEDS: ACETAMINOPHEN TAB 650MG DOSE (2X325MG) PO PRN (00:39)
[2018-10-16 05:39] LABS: CALCIUM LEVEL 7.6 MG/DL (8.8-10.2); CREATININE FOR GFR 0.99 MG/DL (0.55-1.30); GLOMERULAR FILTRATION RATE 59.2 (>45); POTASSIUM SERUM 4.2 MEQ/L (3.5-5.1)
[2018-10-16 05:55] LABS: HEMATOCRIT 26.6 % (36.0-47.0); HEMOGLOBIN 8.8 g/dl (12.0-15.5); MEAN CORPUSCULAR HEMOGLOBIN 30.1 pg (27.0-33.0); MEAN CORPUSCULAR HGB CONC 33.1 g/dl (32.0-36.5); MEAN CORPUSCULAR VOLUME 91.1 fl (80.0-96.0); PLATELET COUNT, AUTOMATED 133 10^3/uL (150-450); RED BLOOD COUNT 2.92 10^6/uL (4.00-5.40); WHITE BLOOD COUNT 9.6 10^3/uL (4.0-10.0)
[2018-10-16] MEDS: LEVOTHYROXINE 75MCG TABLET (0.075MG) PO SCH (06:01)
[2018-10-16 07:02] LABS: ALBUMIN 1.5 GM/DL (3.2-5.2); FREE T4 1.29 NG/DL (0.76-1.46)
[2018-10-16] MEDS: METOPROLOL TART 12.5 MG PER 1/2 TAB PO SCH ×2 (08:23→20:39)
--- NOTE | 2018-10-16 09:01 | REP ---
Portable chest x-ray: Single view. History: Right-sided pleural effusion. Comparison study: October 15, 2018. Findings: There is slight blunting of the left lateral pleural angle. There is evidence of a moderate right pleural effusion again noted unchanged. Left subclavian [id number] catheter is seen with its tip in the expected location of the superior vena cava as before. Mildly prominent heart again noted. No acute infiltrate. The patient's left hand overlies much of the left chest on the current exposure. Electronically Signed by Adama Currie MD 10/16/2018 11:45 A
[2018-10-16] MEDS: PANTOPRAZOLE 40MG TAB (PROTONIX) PO SCH ×2 (09:12→20:39)
[2018-10-16 12:28] LABS: HEMATOCRIT 28.1 % (36.0-47.0); HEMOGLOBIN 9.1 g/dl (12.0-15.5)
--- NOTE | 2018-10-16 12:33 | IPNPDOC ---
Date Seen The patient was seen on 10/16/18. Progress Note SUBJECTIVE: Patient is a 68-year-old female with upper gastrointestinal bleeding. Patient evaluated at bedside this morning. She is sitting up in bed. No more episodes of bleeding since admission. Her shortness of breath and lower extremity edema have improved. Upon follow-up, her is present and is asking if he can ambulate her with assistance. She does admit to lightheadedness with change of position and reports that her blood pressure does run on the low side. OBJECTIVE PHYSICAL EXAMINATION: VITAL SIGNS: Please see below. GENERAL: Petite and pale female, sitting up in hospital bed, alert and conversant, answers questions appropriately, no acute distress. HEENT: Atraumatic, normocephalic, PERRL, EOMI, oral mucosa appears pink and moist, nasal septum appears midline, nares are patent. CARDIOVASCULAR: Regular rate and rhythm, normal S1 and S2, no murmur, rub, click. RESPIRATORY: Crackles have dissipated in the left lower lobe, diminished breath sounds appreciated over the right lower lobe, clear to auscultation in the bilateral upper lung lobes, no wheeze or rhonchi. ABDOMINAL: Flat, soft, non-tender to palpation, non-distended, midline healed surgical incision, no guarding, no rebound, no organomegaly, bowel sounds diminished throughout. EXTREMITIES: No clubbing, no cyanosis, peripheral pulses equal and symmetrical, +2, trace peripheral edema. NEUROLOGICAL: No focal neurological deficits. PSYCHOLOGICAL: Mood and affect appropriate. LABORATORY DATA, IMAGING STUDIES, MICROBIOLOGY: Please see below. Left upper extremity duplex ultrasound on 10/14/2018 - Occlusive thrombosis of the left subclavian, proximal internal jugular, left axillary, proximal brachial, and basilic veins. The mid brachial veins are patent. Portable chest x-ray on 10/15/2018 - Right lower lobe atelectasis or infiltrate. Moderate size right and small left pleural effusions. There are ill-defined parenchymal nodules in the left lung. Portable chest x-ray on 10/16/2018 - Blunting of left lateral pleural angle, moderate right pleural effusion. DVT prophylaxis ordered?: TEDs sequentials, knee-high compression. ASSESSMENT AND PLAN: This is a 68-year-old female with upper gastrointestinal bleeding with underlying metastatic colon adenocarcinoma and upper extremity deep venous thrombosis. PROBLEMS: 1. Lower extremity edema with shortness of breath: Improved. Received 2x Lasix 40mg IV. Question cor pulmonale vs. CHF vs. obstructive mass. Patient takes Lasix 40mg by mouth twice daily at home. Chest x-ray reveals improvement in left sided fluid accumulation; right sided pleural effusion remains. Will cautiously administer Lasix depending on blood pressure. Patient is stable from a respiratory standpoint. Obtaining out-patient imaging from [facility] to determine chronicity of right sided pleural effusion. 2. Right sided pleural effusion: Stable from a respiratory standpoint. Saturating at 97% on room air. Provided 2x Lasix 40mg IV yesterday. Will cautiously provide continued Lasix based on blood pressure and patient symptomatology. No urgent for thoracentesis. 3. Acute upper gastrointestinal bleeding with acute blood loss anemia: Hemoglobin has stabilized. Repeat H/H every 6 hours. History of metastatic colon adenocarcinoma to lung and liver with recent diagnosis of left upper extremity deep venous thrombosis. Was on Eliquis which has been discontinued. Risk of TIA/CVA discussed with patient. Status-post 2 units of packed red blood cells. Gastroenterology consulted. Upper endoscopy performed with findings of a "non-bleeding gastric ulcer with no stigmata of bleeding. Gastritis. One n on-bleeding duodenal ulcer with adherent clot. Injected. Treated with a heater probe." Adjusted Protonix to 40mg by mouth twice daily and Sucralfate 1gm by mouth every six hours. Continue with current diet. Continue Atorvastatin. Recommend holding anticoagulants for at least 7 days before restarting. Would consider restarting low molecular weight Heparin for DVT management. 4. Hypotension: Fluctuating. Will cautiously provided fluid and/or diuretic as the need arises. 5. Hypertension: Have decreased Metoprolol to 6.25mg by mouth twice daily. Spironolactone and scheduled Lasix remain on hold. Will reassess daily. 6. Electrolyte derangements: Corrected calcium 9.6. Administered magnesium and potassium supplementation for diffuse myalgias. 7. Metastatic colon adenocarcinoma to liver and lung: Hematology/oncology consulted. Discussed end-of-life care and goals with patient. She is DNR/DNI. Patient has indicated that ideally she would like to pass in her sleep and that she would prefer not to be in the hospital. Have discussed with patient that hospice may be an appropriate avenue of care, but patient has stated that she does not want to "give in too soon." She has been on multiple chemotherapeutic agents and was unable to tolerate the most recent chemotherapeutic agent, Stivarga. According to hematology/oncology's note from 08/2018 patient may be a candidate for a clinical trial. Patient has requested Hospice consultation. Hospice has scheduled appointment with patient. 8. Elevated INR: Monitor for signs of continued bleeding. Isolated AST elevat ion. 9. Direct hyperbilirubinemia: Likely secondary to underlying metastatic colon adenocarcinoma to liver and lung. 10. Upper extremity deep venous thrombosis: Recent diagnosis of left upper extremity deep venous thrombosis and started on Eliquis. However, secondary to upper gastrointestinal bleeding Eliquis and Aspirin have been discontinued. Hold anticoagulation for at least 7 days. Patient at increased risk for TIA/CVA which has been discussed with patient. 11. Gastroesophageal reflux disease: Patient takes Omeprazole at home. Adjusted Protonix to 40mg by mouth twice daily and Sucralfate. 12. Hypothyroidism: Patient takes Levothyroxine 75ug by mouth daily. Will continue this dose. TSH elevated at 9.650. Free T4 1.29. DISPOSITION: Transferred to PCU. Hospice consulted. Monitor blood pressure and fluid management. VS, I&O, 24H, [facility] Vital Signs/I&O Vital Signs Date Time Temp Pulse Resp B/P (MAP) Pulse Ox O2 Delivery O2 Flow Rate FiO2 10/16/18 08:23 87 88/54 10/16/18 06:00 18 97 Room Air 10/16/18 04:00 97.8 10/13/18 21:15 2 I&O- Last 24 Hours up to 6 AM 10/16/18 06:00 Intake Total 1580 ml Output Total 2620 ml Balance -1040 ml Laboratory Data 24H LABS Laboratory Tests 2 10/15/18 16:53: Anion Gap 13, Glomerular Filtration Rate 53.5, Blood Urea Nitrogen 27H, Creatinine 1.08, Sodium Level 135L, Potassium Level 3.4#L, Chloride Level 105, Carbon Dioxide Level 17L, Calcium Level 7.5L, Magnesium Level 1.9, Thyroid Stimulating Hormone (TSH) 9.650H 10/16/18 04:48: Nucleated Red Blood Cells % (auto) 0.0 10/16/18 04:52: Anion Gap 10, Glomerular Filtration Rate 59.2, Blood Urea Nitrogen 27H, Creatinine 0.99, Sodium Level 137, Potassium Level 4.2#, Chloride Level 107, Carbon Dioxide Level 20L, Calcium Level 7.6L, Albumin 1.5L, Free Thyroxine 1.29 CBC/BMP Laboratory Tests 10/15/18 16:53 Calcium Level 7.5 L 10/15/18 18:00 10/15/18 23:43 10/16/18 04:48 Red Blood Count 2.92 L, Mean Corpuscular Volume 91.1, Mean Corpuscular Hemoglobin 30.1, Mean Corpuscular Hemoglobin Concent 33.1, Red Cell Distribution Width 17.2 H 10/16/18 04:52 Calcium Level 7.6 L DENA THOMAS DO Oct 16, 2018 12:33
--- NOTE | 2018-10-16 14:05 | MEDONC ---
MEDICAL ONCOLOGY PROGRESS NOTE: DATE OF VISIT: 10/15/2018 Reason for followup is subclavian vein thrombosis, catheter induced thrombosis in a patient with an active GI bleed requiring cautery. The patient has a known history of metastatic colorectal carcinoma and does require lifelong anticoagulation despite the fact that this is a catheter induced thrombosis. She has had a performance status of 3/4 of the ECOG scale and does not appear to be able to undergo intensive chemotherapy. She had developed right upper extremity swelling and was found to have an extensive clot in the right upper extremity brachial vein extending to the supraclavicular vein and was started on Lovenox. The intent was to switch her over the Eliquis and the patient had some issues with obtaining that. She then had developed a GI bleed requiring cautery and hospitalization. She is now in the intensive care unit day #2. The patient's current medications included hydrocortisone cream, levothyroxine 75 mcg p.o. daily. She is on metoprolol tartrate 12.5 mg p.o. b.i.d. Her past medical, surgical and family history have remained unchanged since her date of admission to the intensive care unit on 10/13/2018. On the patient's review of systems, she has had no signs of any bleeding, hemoptysis, hematemesis. She currently has some fullness and she states that she is somewhat short of breath at rest. She is trying to eat and has no problem in the actual mechanics of swallowing, but her appetite is somewhat fair. On her physical examination, she appears to have general pallor. Her temperature is 98.8. Her pulse is 118, respiratory rate is 18. Her BP is 122/60 and the pulse oximetry is 97. HEENT is normocephalic, atraumatic. PERRL. EOMI. Her sclerae is white, nonicteric. Oropharynx is clear. Neck is supple. Chest has decreased breath sounds at the bases. Cardiovascular: S1 and S2 are appreciated with no murmurs. Her abdomen is somewhat large globoid. She has no freely flowing ascites. Her WBC count is 11.0, hemoglobin is 10.4 over hematocrit 32.1. MCV is 92.8. RDW is 17. Platelet counts are 146,000. Chemistries show a sodium 138, potassium 4.3, chloride 110, CO2 17, BUN of 33, creatinine 0.80, fasting glucose of 91, calcium of 7.0, AST of 69, ALT of 28, alkaline phosphatase of 385, total protein of 5.3, albumin of 1.3. Impression at this time is current GI bleed with relative contraindication towards anticoagulation, elevated INR currently within therapeutic range, stage IV metastatic colon carcinoma with a performance status 3/4 and poor tolerance to oral drugs. The patient's options for treatment of very minimal. She does not qualify for a clinical trial based on her performance status alone. She has tried some oral chemotherapeutic agents with poor tolerance to them. At this point, palliative care and/or hospice would be the best options for the patient. As far as her anticoagulation is concerned, the patient can be restarted on either Eliquis or she can be started on Lovenox subcu injections at a dose of 1.5 mg/kg daily. Since there is an ease of administration of the Eliquis, this would probably be preferred and this would have to be lifelong. Electronically Signed by Ana Sandoval MD 10/16/2018 06:07 P DD: Ana Sandoval MD 10/15/2018 01:28 P DT: nati 10/16/2018 01:33 P CC:
--- NOTE | 2018-10-16 15:29 | IPN ---
DATE: 10/16/2018 REASON FOR VISIT AND FOLLOWUP: History of recent bleed, left upper extremity catheter thrombosis, and stage IV metastatic colorectal carcinoma. The patient was awake and alert and oriented for discussions and her was present at the bedside as well. The patient is now day three in the intensive care unit and has had no signs of any re-bleeding after her cauterization of her gastric ulcer. She currently has no pain and is not complaining of any shortness of breath. She has a marked improved performance status as compared to yesterday and her breathing, she has no shortness of breath at rest. Currently, her past medical, surgical and family history have remained unchanged since her admission date of 10/13/2018. CURRENT MEDICATIONS: In the intensive care unit: - hydrocortisone Proctosol cream - levothyroxine sodium 75 mcg by mouth daily Most of the patient's medications have currently been held. ALLERGIES: CODEINE, MORPHINE, TAPE. REVIEW OF SYSTEMS: She has had no visual disturbances. She has tiredness, fatigue, weakness. No bleeding. No hematemesis. No melena. She is now taking in full liquids without any problems and no pain. She has had no diarrhea or constipation. Extremities: Generalized weakness and fatigue but no focal deficits and the remainder of the 12-point review of systems is negative. PHYSICAL EXAMINATION: Her weight is 69.4 kg. Temperature is 97.8, pulse is 87, blood pressure is 88/54, pulse oximetry is 97. Her HEENT is normocephalic, atraumatic. Pupils are equal, round, and reactive to light. Extraocular muscles intact. Her sclerae is white, nonicteric. Oropharynx is otherwise clear. Chest: Decreased breath sounds at the bases. No fremitus. On her right upper extremity, the patient shows no swelling or any edema. On her left upper extremity, the patient shows some increasing vascular markings of the anterior chest wall. Left arm shows no swelling. No edema. Skin has a few areas of ecchymosis and areas of venipuncture. IMPRESSION: At this time is: 1. Occlusive thrombosis of the left subclavian proximal internal jugular left axillary and basilic veins. 2. Stage IV metastatic colorectal carcinoma, status post multiple treatments of therapy. 3. Performance status of 3-4 on the Eastern Cooperative Oncology Group (ECOG) scale. PLAN: I have had a discussion with the patient and her today regarding her stage of disease, the disease progression and the unlikelihood that any further chemotherapy or immunotherapy would be of any particular benefit. They have made an appointment and will be discussing hospice services here in [place]. As far as the left upper extremity, the patient may be able to resume therapy with anticoagulation in seven days from her cauterization pending gastroenterology consultation. Due to the patient is going on hospice, interventions such as thrombolytic therapy are not advised.
[2018-10-16 18:36] LABS: HEMATOCRIT 30.6 % (36.0-47.0); HEMOGLOBIN 9.9 g/dl (12.0-15.5)
[2018-10-16] MEDS: ATORVASTATIN 20 MG TAB PO SCH (20:39)
[2018-10-16 23:54] LABS: HEMATOCRIT 28.4 % (36.0-47.0); HEMOGLOBIN 9.2 g/dl (12.0-15.5)
[2018-10-17] VITALS: BP 108/74
[2018-10-17] MEDS: SENOKOT S TAB PO PRN ×2 (01:53→08:50)
[2018-10-17 04:00] VITALS: BP 119/57
[2018-10-17] MEDS: LEVOTHYROXINE 75MCG TABLET (0.075MG) PO SCH (05:46)
[2018-10-17] MEDS: SUCRALFATE SUSP 1GM/10ML UD PO SCH ×3 (05:46→18:05)
[2018-10-17 06:06] LABS: HEMATOCRIT 27.6 % (36.0-47.0); MEAN CORPUSCULAR HEMOGLOBIN 29.4 pg (27.0-33.0); MEAN CORPUSCULAR HGB CONC 32.6 g/dl (32.0-36.5); MEAN CORPUSCULAR VOLUME 90.2 fl (80.0-96.0); PLATELET COUNT, AUTOMATED 125 10^3/uL (150-450); RED BLOOD COUNT 3.06 10^6/uL (4.00-5.40); WHITE BLOOD COUNT 10.5 10^3/uL (4.0-10.0)
[2018-10-17 06:31] LABS: BLOOD UREA NITROGEN 27 MG/DL (7-18); CALCIUM LEVEL 7.7 MG/DL (8.8-10.2); CARBON DIOXIDE LEVEL 18 MEQ/L (21-32); CHLORIDE LEVEL 107 MEQ/L (98-107); CREATININE FOR GFR 0.78 MG/DL (0.55-1.30); GLOMERULAR FILTRATION RATE > 60.0 (>45); GLUCOSE, FASTING 100 MG/DL (70-100); POTASSIUM SERUM 4.4 MEQ/L (3.5-5.1); SODIUM LEVEL 133 MEQ/L (136-145)
[2018-10-17 08:00] VITALS: BP 98/61
[2018-10-17] MEDS ORDERED: MOM 30ML SUSPENSION UDC PO PRN (08:15)
[2018-10-17] MEDS: METOPROLOL TART 12.5 MG PER 1/2 TAB PO SCH ×2 (08:39→21:20)
[2018-10-17] MEDS: PANTOPRAZOLE 40MG TAB (PROTONIX) PO SCH ×2 (08:50→21:20)
--- NOTE | 2018-10-17 10:26 | IPNPDOC ---
Date Seen The patient was seen on 10/17/18. Progress Note SUBJECTIVE: Patient is a 68-year-old female with upper gastrointestinal bleeding. Patient evaluated at bedside this morning. She is sitting up in bed eating breakfast. She has a family friend at bedside. Patient denies any further gastrointestinal bleeding. She does note some lower extremity edema. She does not feel short of breath. She is not coughing. OBJECTIVE PHYSICAL EXAMINATION: VITAL SIGNS: Please see below. GENERAL: Petite and pale female, sitting up in hospital bed, alert and conversant, answers questions appropriately, no acute distress. HEENT: Atraumatic, normocephalic, PERRL, EOMI, oral mucosa appears pink and moist, nasal septum appears midline, nares are patent. CARDIOVASCULAR: Regular rate and rhythm, normal S1 and S2, no murmur, rub, click, no appreciable JVD. RESPIRATORY: Crackles have dissipated in the left lower lobe, diminished breath sounds appreciated over the right lower lobe, clear to auscultation in the bilateral upper lung lobes, no wheeze or rhonchi. ABDOMINAL: Flat, soft, non-tender to palpation, non-distended, midline healed surgical incision, no guarding, no rebound, no organomegaly, bowel sounds diminished throughout. EXTREMITIES: No clubbing, no cyanosis, peripheral pulses equal and symmetrical, +2, +2 peripheral edema. NEUROLOGICAL: No focal neurological deficits. PSYCHOLOGICAL: Mood and affect appropriate. LABORATORY DATA, IMAGING STUDIES, MICROBIOLOGY: Please see below. Left upper extremity duplex ultrasound on 10/14/2018 - Occlusive thrombosis of the left subclavian, proximal internal jugular, left axillary, proximal brachial, and basilic veins. The mid brachial veins are patent. Portable chest x-ray on 10/15/2018 - Right lower lobe atelectasis or infiltrate. Moderate size right and small left pleural effusions. There are ill-defined parenchymal nodules in the left lung. Portable chest x-ray on 10/16/2018 - Blunting of left lateral pleural angle, moderate right pleural effusion. DVT prophylaxis ordered?: TEDs sequentials, knee-high compression. ASSESSMENT AND PLAN: This is a 68-year-old female with upper gastrointestinal bleeding with underlying metastatic colon adenocarcinoma and upper extremity deep venous thrombosis. PROBLEMS: 1. Lower extremity edema with shortness of breath: Cor pulmonale versus CHF versus obstruction. Have started Lasix 40 mg IV twice a day. Obtaining transthoracic echocardiogram. Ordered incentive spirometry. Will obtain a portable chest x-ray tomorrow morning. Patient appears to be stable from respiratory standpoint. She is not on supplemental oxygen. Current oxygen saturation is 98% on room air. Will aggressively diurese patient. If patient becomes compromised respiratory standpoint and/or right-sided pleural effusion does not improve with aggressive diuresis would consider further evaluation with pulmonology. Obtaining out-patient imaging from [facility] to determine chronicity of right sided pleural effusion. 2. Right sided pleural effusion: Stable from a respiratory standpoint. Saturating at 98% on room air. Have added Lasix 40 mg IV twice a day. Added incentive spirometry. Will obtain a portal chest x-ray on 10/18/2018. 3. Leukocytosis: Patient has had a mild fluctuating leukocytosis since admission. She has remained afebrile. Intermittent tachycardia that appears to be controlled with beta amita. Both CRP and ESR are elevated. The leukocytosis could be reactive. Will monitor for the time being. 4. Acute upper gastrointestinal bleeding with acute blood loss anemia: Hemoglobin has stabilized. History of metastatic colon adenocarcinoma to lung and liver with recent diagnosis of left upper extremity deep venous thrombosis. Was on Eliquis which has been discontinued. Risk of TIA/CVA discussed with patient. Status-post 2 units of packed red blood cells. Gastroenterology consulted. Upper endoscopy performed with findings of a "non-bleeding gastric ulcer with no stigmata of bleeding. Gastritis. One non-bleeding duodenal ulcer with adherent clot. Injected. Treated with a heater probe." Continue Protonix to 40mg by mouth twice daily and Sucralfate 1gm by mouth every six hours. Continue with current diet. Continue Atorvastatin. Recommend holding anticoagulants for at least 7 days before restarting. Would consider restarting low molecular weight Heparin for DVT management. 5. Hypotension: Fluctuating. Have added Lasix 40 mg IV twice a day. Monitor blood pressure. 6. Hypertension: Continue Metoprolol to 6.25mg by mouth twice daily. Spironolactone remains on hold. Will reassess daily. 7. Electrolyte derangements: Corrected calcium 9.7. 8. Metastatic colon adenocarcinoma to liver and lung: Hematology/oncology consulted. Discussed end-of-life care and goals with patient. She is DNR/DNI. Patient has indicated that ideally she would like to pass in her sleep and that she would prefer not to be in the hospital. Have discussed with patient that hospice may be an appropriate avenue of care, but patient has stated that she does not want to "give in too soon." She has been on multiple chemotherapeutic agents and was unable to tolerate the most recent chemotherapeutic agent, Stivarga. Hematology/oncology have discussed with patient and had disease progression and the unlikelihood that any further chemotherapy or immunotherapy could be particularly beneficial. Patient is meeting with hospice today. 9. Elevated INR: Monitor for signs of continued bleeding. Isolated AST elevation. 10. Direct hyperbilirubinemia: Likely secondary to underlying metastatic colon adenocarcinoma to liver and lung. 11. Upper extremity deep venous thrombosis: Recent diagnosis of left upper extremity deep venous thrombosis and started on Eliquis. However, secondary to upper gastrointestinal bleeding Eliquis and Aspirin have been discontinued. Hold anticoagulation for at least 7 days. Patient at increased risk for TIA/CVA which has been discussed with patient. 12. Gastroesophageal reflux disease: Patient takes Omeprazole at home. Continue Protonix to 40mg by mouth twice daily and Sucralfate. 13. Hypothyroidism: Patient takes Levothyroxine 75ug by mouth daily. Will continue this dose. TSH elevated at 9.650. Free T4 1.29. DISPOSITION: Hospice consult. Obtaining echocardiogram. Administering Lasix. Potential discharge in next 24-48 hours. VS, I&O, 24H, [facility] Vital Signs/I&O Vital Signs Date Time Temp Pulse Resp B/P (MAP) Pulse Ox O2 Delivery O2 Flow Rate FiO2 10/17/18 08:39 84 98/61 10/17/18 08:00 98.4 18 98 Room Air 10/13/18 21:15 2 I&O- Last 24 Hours up to 6 AM 10/17/18 06:00 Intake Total 1020 ml Output Total 580 ml Balance 440 ml Laboratory Data 24H LABS Laboratory Tests 2 10/17/18 05:14: Nucleated Red Blood Cells % (auto) 0.0, Anion Gap 8, Glomerular Filtration Rate > 60.0, Blood Urea Nitrogen 27H, Creatinine 0.78, Sodium Level 133L, Potassium Level 4.4, Chloride Level 107, Carbon Dioxide Level 18L, Calcium Level 7.7L, C- Reactive Protein, Quantitative 9.40H 10/17/18 08:46: Erythrocyte Sedimentation Rate 52H CBC/BMP Laboratory Tests 10/16/18 12:10 10/16/18 18:29 10/16/18 23:44 10/17/18 05:14 Red Blood Count 3.06 L, Mean Corpuscular Volume 90.2, Mean Corpuscular Hemoglobin 29.4, Mean Corpuscular Hemoglobin Concent 32.6, Red Cell Distribution Width 17.6 H, Calcium Level 7.7 L DENA THOMAS DO Oct 17, 2018 10:26
[2018-10-17 11:40] VITALS: BP 114/56
[2018-10-17] MEDS: FUROSEMIDE 20 MG/2 ML VIAL (J1940) IV SCH ×2 (11:49→17:08)
[2018-10-17 16:00] VITALS: BP 104/52
[2018-10-17 20:00] VITALS: BP 111/55
[2018-10-17] MEDS ORDERED: PILL CRUSHER/CUTTER 1 EACH XX PRN (21:15)
[2018-10-17] MEDS: ATORVASTATIN 20 MG TAB PO SCH (21:20)
[2018-10-18] VITALS (8 sets, daily range): BP systolic 80–111; BP diastolic 50–72
[2018-10-18] MEDS: SUCRALFATE SUSP 1GM/10ML UD PO SCH ×5 (00:04→23:18)
[2018-10-18] MEDS: LEVOTHYROXINE 75MCG TABLET (0.075MG) PO SCH (05:13)
[2018-10-18 05:58] LABS: HEMATOCRIT 25.8 % (36.0-47.0); HEMOGLOBIN 8.5 g/dl (12.0-15.5); MEAN CORPUSCULAR HEMOGLOBIN 29.5 pg (27.0-33.0); MEAN CORPUSCULAR HGB CONC 32.9 g/dl (32.0-36.5); MEAN CORPUSCULAR VOLUME 89.6 fl (80.0-96.0); PLATELET COUNT, AUTOMATED 111 10^3/uL (150-450); RED BLOOD COUNT 2.88 10^6/uL (4.00-5.40); WHITE BLOOD COUNT 9.5 10^3/uL (4.0-10.0)
[2018-10-18 06:20] LABS: BLOOD UREA NITROGEN 27 MG/DL (7-18); CALCIUM LEVEL 7.9 MG/DL (8.8-10.2); CARBON DIOXIDE LEVEL 19 MEQ/L (21-32); CHLORIDE LEVEL 106 MEQ/L (98-107); CREATININE FOR GFR 0.65 MG/DL (0.55-1.30); GLOMERULAR FILTRATION RATE > 60.0 (>45); GLUCOSE, FASTING 87 MG/DL (70-100); POTASSIUM SERUM 3.8 MEQ/L (3.5-5.1); SODIUM LEVEL 134 MEQ/L (136-145)
--- NOTE | 2018-10-18 08:01 | REP ---
Portable chest x-ray: Single view. History: Shortness of breath. Comparison study: October 16, 2018. Findings: There is a [id number] right pleural effusion, increased in size from the study done 2 days ago. Small left effusion is seen blunting the lateral pleural angle. A [id number] catheter is seen in place on the left. There is a pulmonary nodule projecting in the upper lobe region on the left at measures 1.6 cm. There is another larger nodular density in the perihilar region which may be cavitary. No new infiltrate. There is hilar fullness bilaterally. Impression: Increasing right pleural effusion. Electronically Signed by Adama Currie MD 10/18/2018 07:52 A
[2018-10-18] MEDS: PANTOPRAZOLE 40MG TAB (PROTONIX) PO SCH ×2 (08:38→20:47)
[2018-10-18] MEDS: METOPROLOL TART 12.5 MG PER 1/2 TAB PO SCH ×2 (08:39→20:47)
[2018-10-18 08:59] LABS: LDH LACTATE DEHYDROGENASE 322 U/L (84-246)
--- NOTE | 2018-10-18 09:09 | ECHO ---
DATE OF PROCEDURE: 10/17/2018 REFERRING PHYSICIAN: Dr. Baltazar. INDICATION: Dyspnea. HEIGHT: 163 cm. WEIGHT: 70 kg. DIMENSIONS: IVS: 1.2 LV: 2.5 LVPW: 1.2 LA: 3.1 Aorta: 2.2 Mitral E wave velocity: 69 A wave: 88 E prime septal: 4.4 E prime lateral: 8.3 FINDINGS: The study is of acceptable technical quality. Left ventricle is of normal size and normal systolic function. I estimate ejection fraction around 55-60%. On some views, there appears to be mild hypokinesis of the apex, but I do not consider that overly convincing. Right ventricle is normal size and systolic function as well. Both atria appear grossly normal. Aortic valve is mildly sclerotic but it has three leaflets and normal mobility. Mitral and tricuspid valves appear normal. Pulmonic valve was poorly visualized but grossly also appears normal. No pericardial effusion is noted. Inferior vena cava is of relatively small caliber. Aortic root, abdominal aorta appear normal. Aortic arch was not well seen. Doppler interrogation reveals no aortic stenosis or insufficiency. There is mild mitral insufficiency and mild tricuspid insufficiency. Calculated pulmonary artery pressure is in high 20s corresponding to normal values. Mitral inflow pattern and tissue Doppler imaging of mitral annulus reveal grade 1 diastolic dysfunction. CONCLUSIONS: 1. Study is of acceptable technical quality. 2. Normal LV size with mild left ventricular hypertrophy and preserved LV systolic function. Grade 1 diastolic dysfunction. 3. Aortic sclerosis but no stenosis or insufficiency. 4. Mild mitral and tricuspid insufficiency. 5. Likely normal central venous pressure and normal pulmonary artery pressure. COMMENTS: SBE prophylaxis is not recommended. Study does not provide obvious reason for shortness of breath.
--- NOTE | 2018-10-18 13:35 | IPNPDOC ---
Date Seen The patient was seen on 10/18/18. Progress Note SUBJECTIVE: Patient is a 68-year-old female with upper gastrointestinal bleeding. Patient evaluated at bedside this morning. She is sitting up in bed. Her is at bedside. She has no further gastrointestinal bleeding. She denies chest pain, shortness of breath. She very much like to go home. OBJECTIVE PHYSICAL EXAMINATION: VITAL SIGNS: Please see below. GENERAL: Petite and pale female, sitting up in hospital bed, alert and conversant, answers questions appropriately, no acute distress. HEENT: Atraumatic, normocephalic, PERRL, EOMI, oral mucosa appears pink and moist, nasal septum appears midline, nares are patent. CARDIOVASCULAR: Regular rate and rhythm, normal S1 and S2, no murmur, rub, click, no appreciable JVD. RESPIRATORY: Left lung lobes are clear without crackles appreciated, right upper lung lobe is clear to auscultation, right lower lung lobes are diminished without crackles; no rhonchi or wheezing noted throughout. ABDOMINAL: Flat, soft, non-tender to palpation, non-distended, midline healed surgical incision, no guarding, no rebound, no organomegaly, bowel sounds appreciated throughout. EXTREMITIES: No clubbing, no cyanosis, peripheral pulses equal and symmetrical, +2, no peripheral edema noted. NEUROLOGICAL: No focal neurological deficits. PSYCHOLOGICAL: Mood and affect appropriate. LABORATORY DATA, IMAGING STUDIES, MICROBIOLOGY: Please see below. Left upper extremity duplex ultrasound on 10/14/2018 - Occlusive thrombosis of t he left subclavian, proximal internal jugular, left axillary, proximal brachial, and basilic veins. The mid brachial veins are patent. Portable chest x-ray on 10/15/2018 - Right lower lobe atelectasis or infiltrate. Moderate size right and small left pleural effusions. There are ill-defined parenchymal nodules in the left lung. Portable chest x-ray on 10/16/2018 - Blunting of left lateral pleural angle, moderate right pleural effusion. DVT prophylaxis ordered?: TEDs sequentials, knee-high compression. ASSESSMENT AND PLAN: This is a 68-year-old female with upper gastrointestinal bleeding with underlying metastatic colon adenocarcinoma and upper extremity deep venous thrombosis. PROBLEMS: 1. Right sided pleural effusion: No respiratory compromise noted. Currently saturating at 97% on room air. Patient was on Lasix 20 mg IV twice daily with hold parameters for systolic blood pressure < 110. Patient received 1 dose yesterday. Second dose was not administered secondary to low blood pressure. Thoracentesis has been ordered for diagnostic purposes. Portable chest x-ray obt ained reveals increasing right-sided pleural effusion. Continue with incentive spirometry. 2. Lower extremity edema: Transthoracic echocardiogram has been completed. Lasix has been discontinued secondary to low blood pressures. Lower extremity edema appears improved 3. Leukocytosis: Resolved. 4. Acute upper gastrointestinal bleeding with acute blood loss anemia: Hemoglobin has stabilized. History of metastatic colon adenocarcinoma to lung and liver with recent diagnosis of left upper extremity deep venous thrombosis. Was on Eliquis which has been discontinued. Risk of TIA/CVA discussed with patient. Status-post 2 units of packed red blood cells. Gastroenterology consulted. Upper endoscopy performed with findings of a "non-bleeding gastric ulcer with no stigmata of bleeding. Gastritis. One non-bleeding duodenal ulcer with adherent clot. Injected. Treated with a heater probe." Continue Protonix to 40mg by mouth twice daily and Sucralfate 1gm by mouth every six hours. Co ntinue with current diet. Continue Atorvastatin. Recommend holding anticoagulants for at least 7 days before restarting. Would consider restarting low molecular weight Heparin for DVT management. 5. Hypotension: Fluctuating. Lasix has been discontinued. Monitor blood pressure for the time being. 6. Hypertension: Continue Metoprolol to 6.25mg by mouth twice daily. Spironolactone remains on hold. Will reassess daily. 7. Electrolyte derangements: Calcium of 7.9. Obtaining albumin level in order to calculate corrected calcium. 8. Metastatic colon adenocarcinoma to liver and lung: Hematology/oncology consulted. Discussed end-of-life care and goals with patient. She is DNR/DNI. Patient has indicated that ideally she would like to pass in her sleep and that she would prefer not to be in the hospital. Have discussed with patient that hospice may be an appropriate avenue of care, but patient has stated that she does not want to "give in too soon." She has been on multiple chemotherapeutic agents and was unable to tolerate the most recent chemotherapeutic agent, Stivarga. Hematology/oncology have discussed with patient and had disease progression and the unlikelihood that any further chemotherapy or immunotherapy could be particularly beneficial. Patient is meeting with hospice once discharge. 9. Elevated INR: Monitor for signs of continued bleeding. Isolated AST elevation. 10. Direct hyperbilirubinemia: Likely secondary to underlying metastatic colon adenocarcinoma to liver and lung. 11. Upper extremity deep venous thrombosis: Recent diagnosis of left upper extremity deep venous thrombosis and started on Eliquis. However, secondary to upper gastrointestinal bleeding Eliquis and Aspirin have been discontinued. Hold anticoagulation for at least 7 days. Patient at increased risk for TIA/CVA which has been discussed with patient. 12. Gastroesophageal reflux disease: Patient takes Omeprazole at home. Continue Protonix to 40mg by mouth twice daily and Sucralfate. 13. Hypothyroidism: Patient takes Levothyroxine 75ug by mouth daily. Will continue this dose. TSH elevated at 9.650. Free T4 1.29. DISPOSITION: Diagnostic thoracentesis. Potential discharge in the next 24 hours. [facility]I&O Vital Signs Date Time Temp Pulse Resp B/P (MAP) Pulse Ox O2 Delivery O2 Flow Rate FiO2 10/18/18 12:00 98.2 96 18 95/53 (67) 97 Room Air 10/13/18 21:15 2 I&O- Last 24 Hours up to 6 AM 10/18/18 06:00 Intake Total 860 ml Output Total 1325 ml Balance -465 ml Laboratory Data 24H LABS Laboratory Tests 2 10/18/18 05:13: Nucleated Red Blood Cells % (auto) 0.0, Anion Gap 9, Glomerular Filtration Rate > 60.0, Blood Urea Nitrogen 27H, Creatinine 0.65, Sodium Level 134L, Potassium Level 3.8, Chloride Level 106, Carbon Dioxide Level 19L, Calcium Level 7.9L, Lactate Dehydrogenase 322H CBC/BMP Laboratory Tests 10/18/18 05:13 Red Blood Count 2.88 L, Mean Corpuscular Volume 89.6, Mean Corpuscular Hemoglobin 29.5, Mean Corpuscular Hemoglobin Concent 32.9, Red Cell Distribution Width 17.7 H, Calcium Level 7.9 L DENA THOMAS DO Oct 18, 2018 13:35
[2018-10-18 13:49] LABS: INR 1.31; PROTHROMBIN TIME 16.5 SECONDS (12.1-14.4)
[2018-10-18 14:04] LABS: ALBUMIN 1.4 GM/DL (3.2-5.2)
[2018-10-18 16:19] LABS: PH BODY FLUID 7.394 UNITS (NOT ESTABLISHED); SOURCE, BODY FLUID pH PLEURAL
[2018-10-18 16:22] LABS: APPEARANCE, BODY FLUID CLOUDY (CLEAR); PLEURAL FL COLOR RED (COLORLESS); SOURCE, BODY FLUID PLEURAL
[2018-10-18] MEDS: ACETAMINOPHEN TAB 650MG DOSE (2X325MG) PO PRN (16:43)
[2018-10-18 16:44] LABS: AMYLASE, BODY FLUID 32 U/L (NOT ESTABLISHED); CHOLESTEROL, BODY FLUID < 50 MG/DL (NOT ESTABLISHED); LDH, BODY FLUID 377 U/L (NOT ESTABLISHED); SOURCE, BODY FLUID ALBUMIN PLEURAL; SOURCE, BODY FLUID AMYLASE PLEURAL; SOURCE, BODY FLUID CHOL PLEURAL; SOURCE, BODY FLUID GLUCOSE PLEURAL; SOURCE, BODY FLUID LDH PLEURAL; SOURCE, BODY FLUID TOT PROTEIN PLEURAL; SOURCE, BODY FLUID TRIG PLEURAL; TOTAL PROTEIN, BODY FLUID 2.7 G/DL (NOT ESTABLISHED); TRIGLYCERIDE, BODY FLUID 32 MG/DL (NOT ESTABLISHED)
--- NOTE | 2018-10-18 17:11 | REP ---
Chest x-ray: Two views. History: Status post thoracentesis. Comparison study October 18, 2018. Findings: Right pleural effusion is much improved. The patient is exposed at an improved inspiratory level. There is no evidence of pneumothorax. The left pleural effusion appears improved as well. Nodular opacities are again noted in the left lung. Left-sided [id number] catheter is seen. Impression: Improved right pleural effusion and improved aeration post thoracentesis. No complication identified. Electronically Signed by Adama Currie MD 10/18/2018 08:04 P
[2018-10-18 17:29] LABS: HEMATOCRIT 29.6 % (36.0-47.0); HEMOGLOBIN 9.9 g/dl (12.0-15.5); MEAN CORPUSCULAR HEMOGLOBIN 29.6 pg (27.0-33.0); MEAN CORPUSCULAR HGB CONC 33.4 g/dl (32.0-36.5); MEAN CORPUSCULAR VOLUME 88.4 fl (80.0-96.0); PLATELET COUNT, AUTOMATED 138 10^3/uL (150-450); RED BLOOD COUNT 3.35 10^6/uL (4.00-5.40); WHITE BLOOD COUNT 15.8 10^3/uL (4.0-10.0)
[2018-10-18] MEDS ORDERED: SUCR10SS PO (18:28)
[2018-10-18] MEDS ORDERED: METO1TAB87 PO (18:28)
[2018-10-18] MEDS ORDERED: SENOKOT S TAB PO PRN (19:00)
--- NOTE | 2018-10-18 19:57 | REP ---
ULTRASOUND-GUIDED RIGHT THORACENTESIS The procedure was performed under the direct supervision of Dr. Currie. The risks and benefits of the procedure were explained to the patient and informed consent was obtained. The right pleural effusion was localized using ultrasound guidance. The skin was prepped and draped in a sterile fashion. 1% lidocaine was used as a local anesthetic. An 8-Slovenian multi side-hole catheter was inserted using trocar technique. 1515 ml of low viscosity red colored fluid was withdrawn with a sample sent to the lab for analysis. The patient tolerated the procedure well and there were no immediate complications. Reviewed by NEGRO Olsen 10/18/2018 05:19 P Electronically Signed by Adama Currie MD 10/18/2018 07:48 P
[2018-10-18] MEDS: ATORVASTATIN 20 MG TAB PO SCH (20:47)
[2018-10-19 00:08] VITALS: BP 100/60
[2018-10-19 04:00] VITALS: BP 96/50
[2018-10-19] MEDS: SUCRALFATE SUSP 1GM/10ML UD PO SCH ×2 (05:39→11:36)
[2018-10-19] MEDS: LEVOTHYROXINE 75MCG TABLET (0.075MG) PO SCH (05:39)
[2018-10-19 05:53] LABS: HEMATOCRIT 25.2 % (36.0-47.0); HEMOGLOBIN 8.6 g/dl (12.0-15.5); MEAN CORPUSCULAR HEMOGLOBIN 29.6 pg (27.0-33.0); MEAN CORPUSCULAR HGB CONC 34.1 g/dl (32.0-36.5); MEAN CORPUSCULAR VOLUME 86.6 fl (80.0-96.0); PLATELET COUNT, AUTOMATED 112 10^3/uL (150-450); RED BLOOD COUNT 2.91 10^6/uL (4.00-5.40); WHITE BLOOD COUNT 11.7 10^3/uL (4.0-10.0)
[2018-10-19 06:20] LABS: BLOOD UREA NITROGEN 33 MG/DL (7-18); CARBON DIOXIDE LEVEL 20 MEQ/L (21-32); CHLORIDE LEVEL 105 MEQ/L (98-107); CREATININE FOR GFR 0.77 MG/DL (0.55-1.30); GLOMERULAR FILTRATION RATE > 60.0 (>45); GLUCOSE, FASTING 97 MG/DL (70-100); SODIUM LEVEL 134 MEQ/L (136-145)
[2018-10-19 08:23] VITALS: BP 94/52
[2018-10-19 08:41] VITALS: BP 94/52
[2018-10-19] MEDS: METOPROLOL TART 12.5 MG PER 1/2 TAB PO SCH (08:41)
[2018-10-19] MEDS: PANTOPRAZOLE 40MG TAB (PROTONIX) PO SCH (08:53)
--- NOTE | 2018-10-19 12:48 | DS.PDOC ---
Discharge Summary General Date of Admission Oct 13, 2018 at 17:51 Date of Discharge 10/19/2018 Primary Care Physician: Yani Oscra Attending Physician: ZAIRA JENSEN MD Specialist/Consultants Involve: Lei Martin Specialist/Consultants Involve Hematology/oncology: Dr. Ana Sandoval Discharge Summary PROCEDURES PERFORMED DURING STAY: 1. Upper endoscopy + heater probe + 1:10,000 Epinephrine 2. Right sided thoracentesis 3. Transthoracic echocardiogram ADMITTING DIAGNOSES: 1. Hematemesis. 2. Recent left upper extremity DVT. 3. Metastatic stage IV colon cancer. 4. Hypothyroidism. 5. Hyperlipidemia. DISCHARGE DIAGNOSES: 1. Acute upper gastrointestinal bleed. 2. Right sided pleural effusion, likely malignant. 3. Hypotension. 4. Lower extremity edema. 5. Direct hyperbilirubinemia. 6. Elevated INR. 7. Gastroesophageal reflux disease. 8. Hypothyroidism. 9. Leukocytosis. 10. Extensive left upper extremity deep venous thrombosis. COMPLICATIONS/CHIEF COMPLAINT: Acute Upper Gastrointestinal Bleeding. HISTORY OF PRESENT ILLNESS: Ngoc Yoon, a 68-year-old patient of Dr. Oscar, is being treated by Dr. Sandoval for stage IV colon cancer metastatic to the lung and liver. She has developed extensive left upper extremity DVT, which was diagnosed on 10/10/2018 with an upper extremity Duplex scan done at [facility] (report indicates extensive DVT, left jugular subclavian axillary and brachial veins with involvement of left cephalic vein). She is started on Eliquis for this. This morning she was nauseated. She went to the bathroom. She vomited profuse amounts of bright red blood. She said she has had bright red blood hematemesis during the course of the day. As noted above, she has metastatic colon cancer, being followed by Dr. Sandoval. She had a CT scan of the chest done at [facility] on 10/10/2018, shows multiple bilateral pulmonary nodules that increased in size. Mild bilateral hilar and subcarinal adenopathy has also increased in size. Stable metastatic disease of the liver. Patient's colon cancer is BRAF negative, KRAS negative and SHEA negative. Patient has been taking Stivarga, which has been held recently due to profuse diarrhea. Dr. Sandoval's office note from 09/16/2018 notes that the patient has very few options remaining for any of the standard therapies, as she is negative for molecular markers and that she mentioned considering clinical trial for the patient or cyber knife therapy for palliation of some of the metastases. I did find a PET scan from 10/08/2018 that showed progression in the liver, right upper abdominal costal margin, as well as medi astinal hilar and pulmonary parenchymal disease. Patient has no past history of ulcer disease, has not had an esophagogastroduodenoscopy (EGD). HOSPITAL COURSE: Patient was admitted to the intensive care unit and started on IV Protonix and oral Carafate. Gastroenterology was consulted with recom mendation to perform upper endoscopy which revealed "non-bleeding gastric ulcer with no stigmata of bleeding, gastritis, one non-bleeding duodenal ulcer with adherent clot that was injected with Epinephrine and treated with a heater probe." Oral anticoagulation was discontinued due to acute gastrointestinal bleed. Risks of discontinuation were discussed with patient with understanding that she is at risk for worsening and/or progression of thromboembolism. Gastrointestinal guidelines recommend holding anticoagulation for at least 7 days which was discussed with patient. Patient was consented for blood transfusion and received 2 units of packed red blood cells. Elevated direct bilirubin possibly as a result of acute gastrointestinal bleed. She was also started on normal saline intravenous fluid resuscitation. After endoscopy, clear liquid diet was started with advancement in diet as tolerated. Hematology/oncology consulted secondary to patient's metastatic stage IV colon cancer with recommendations that patient is appropriate for palliative and/or hospice care due to chemotherapy treatment failure. Patient developed lower extremity edema and shortness of breath. Right sided pleural effusion noted on imaging. Provided IV Lasix with improvement in lower extremity edema; however, right sided pleural effusion persisted. Lasix discontinued due to fluctuating low blood pressures. Home anti-hypertensives were on hold throughout hospitalization due to low blood pressures. Right sided thoracentesis drained 1.515 L of viscous red-colored fluid which had 646 WBC which were 88.5% mononuclear cells and 11.5% polymorphonuclear cells. Gram stain of fluid revealed few WBC, many RBCs, and no organisms seen. Culture pending at time of discharge. Echocardiogram obtained which revealed grade 1 diastolic dysfunction. Leukocytosis documented on laboratory evaluation likely reactive. Both CRP and ESR were elevated. Multiple discussions took place throughout hospitalization regarding end-of-life care. Patient was DNR/DNI. Discussed with patient and patient's the idea of hospice with patient making arrangements to meet with hospice once discharge. Resuming anticoagulation was discussed with patient and . Risks and benefits were extensively discussed (including risk for re-bleeding once anticoagulation is restarted) with patient making the decision to be discharged without resuming anticoagulation. Patient understood the risks of not resuming anticoagulation, including, but not limited to progression of deep venous thrombosis, pulmonary embolism, , and less likely cerebrovascular accident. Patient stabilized and had no further gastrointestinal bleeding episodes. She was stable at time of discharge. DISCHARGE MEDICATIONS: Please see below. ALLERGIES: Please see below. PHYSICAL EXAMINATION ON DISCHARGE: VITAL SIGNS: Please see below. GENERAL: Petite and pale female, sitting up in hospital bed, alert and conversant, answers questions appropriately, no acute distress. HEENT: Atraumatic, normocephalic, PERRL, EOMI, oral mucosa appears pink and moist, nasal septum appears midline, nares are patent. CARDIOVASCULAR: Regular rate and rhythm, normal S1 and S2, no murmur, rub, click, no appreciable JVD. RESPIRATORY: Left lung lobes are clear without crackles appreciated, right upper lung lobe is clear to auscultation, right lower lung lobes are diminished without crackles; no rhonchi or wheezing noted throughout. ABDOMINAL: Flat, soft, non-tender to palpation, non-distended, midline healed surgical incision, no guarding, no rebound, no organomegaly, bowel sounds appreciated throughout. EXTREMITIES: No clubbing, no cyanosis, peripheral pulses equal and symmetrical, +2, no peripheral edema noted. NEUROLOGICAL: No focal neurological deficits. PSYCHOLOGICAL: Mood and affect appropriate. LABORATORY DATA: Please see below. IMAGIN. Left upper extremity duplex ultrasound on 10/14/2018 - Occlusive thrombosis of the left subclavian, proximal internal jugular, left axillary, proximal brachial, and basilic veins. The mid brachial veins are patent. 2. Portable chest x-ray on 10/15/2018 - Right lower lobe atelectasis or infiltrate. Moderate size right and small left pleural effusions. There are ill-defined parenchymal nodules in the left lung. 3. Portable chest x-ray on 10/16/2018 - Blunting of left lateral pleural angle, moderate right pleural effusion. 4. Portable chest x-ray on 10/18/2018 - Increasing right pleural effusion. 5. Post-thoracentesis chest x-ray on 10/18/2018 - Improved right pleural effusion and improved aeration post thoracentesis. PROGNOSIS: Stable, but overall prognosis poor. ACTIVITY: As tolerated. DIET: As tolerated. DISCHARGE PLAN: Problem: Managing health at home Goal: Improve health & wellness Instructions: Follow DC Instruction DISPOSITION: Home. DISCHARGE INSTRUCTIONS: 1. START taking Metoprolol 6.25mg by mouth twice daily for fast heart rate. 2. START taking Sucralfate 1gm/10mL by mouth every 6 hours for gastrointestinal bleed and continue for 4-8 weeks. 2. STOP taking Metoprolol Tartrate 12.5mg by mouth twice daily due to low blood pressure. 3. STOP taking Spironolactone 50mg by mouth twice daily due to low blood pressure. 4. STOP taking Furosemide 20mg by mouth twice daily due to low blood pressure. 5. STOP taking Potassium Chloride 10mEq by mouth every morning and at bedtime. 6. STOP taking Aspirin 81mg by mouth at bedtime due to gastrointestinal bleed. 7. STOP taking Eliquis 10mg and 5mg by mouth due to gastrointestinal bleed. 8. Continue to take all over medications as previously prescribed. 9. Schedule appointment with primary care provider, Dr. Oscar, in 7-10 days. 10. Schedule appointment with supervisor salvage/oncologist, Dr. Sandoval, in 7-10 days. ITEMS TO FOLLOWUP ON ON OUTPATIENT: 1. Resuming blood pressure medications. 2. Resuming diuretics (water pills). 3. Consider continuing discussion regarding risk vs. benefit of resuming anticoagulation in light of metastatic stage IV colon cancer with recurrent deep venous thromboses. DISCHARGE CONDITION: Stable, but overall poor. TIME SPENT ON DISCHARGE: Greater than 45 minutes. Vital Signs/I&Os Vital Signs Date Time Temp Pulse Resp B/P (MAP) Pulse Ox O2 Delivery O2 Flow Rate FiO2 10/19/18 08:41 65 94/52 10/19/18 08:23 99.2 19 98 Room Air 10/13/18 21:15 2 I&O- Last 24 Hours up to 6 AM 10/19/18 05:59 Intake Total 840 ml Output Total 600 ml Balance 240 ml Laboratory Data Labs 24H Laboratory Tests 2 10/18/18 13:24: Prothrombin Time 16.5H, Prothromb Time International Ratio 1.31 10/18/18 15:22: Body Fluid pH 7.394, Body Fluid pH Source PLEURAL, Body Fluid WBC (Auto) 646H, Body Fluid RBC (Auto) 243, Body Fluid Mononuclear Cells % Auto 88.5H, Fluid Polymorphonuclear Cell % Auto 11.5H, Body Fluid Glucose Source PLEURAL, Body Fluid Glucose 48, Body Fluid Protein Source PLEURAL, Body Fluid Total Protein 2.7, Body Fluid Albumin Source PLEURAL, Body Fluid Albumin 1.0, Body Fluid LDH Source PLEURAL, Body Fluid Lactate Dehydrogenase 377, Body Fluid Amylase Source PLEURAL, Body Fluid Amylase 32, Body Fluid Cholesterol < 50, Body Fluid Cholesterol Source PLEURAL, Body Fluid Triglyceride Source PLEURAL, Body Fluid Triglycerides 32, Pleural Fluid Source PLEURAL, Pleural Fluid Color RED, Pleural Fluid Appearance CLOUDY 10/18/18 17:08: Nucleated Red Blood Cells % (auto) 0.0 10/19/18 05:39: Nucleated Red Blood Cells % (auto) 0.0, Anion Gap 9, Glomerular Filtration Rate > 60.0, Blood Urea Nitrogen 33H, Creatinine 0.77, Sodium Level 134L, Potassium Level 4.0, Chloride Level 105, Carbon Dioxide Level 20L, Calcium Level 8.0L CBC/BMP Laboratory Tests 10/18/18 17:08 Red Blood Count 3.35 L, Mean Corpuscular Volume 88.4, Mean Corpuscular Hemoglobin 29.6, Mean Corpuscular Hemoglobin Concent 33.4, Red Cell Distribution Width 17.8 H 10/19/18 05:39 Red Blood Count 2.91 L, Mean Corpuscular Volume 86.6, Mean Corpuscular Hemoglobin 29.6, Mean Corpuscular Hemoglobin Concent 34.1, Red Cell Distribution Width 17.6 H, Calcium Level 8.0 L Microbiology Microbiology 10/18/18 Acid Fast Stain, Received Pending 10/18/18 Mycobacterial Culture, Received Pending 10/18/18 Fungal Smear, Received Pending 10/18/18 Fungal Culture, Received Pending 10/18/18 Gram Stain - Final, Resulted 10/18/18 Anaerobic Culture, Resulted Pending 10/18/18 Body Fluid Culture, Received Pending Discharge Medications Scheduled Atorvastatin Calcium (Atorvastatin Calcium) 20 Mg Tab, 20 MG PO QHS, (Reported) Levothyroxine Sodium (Synthroid) 75 Mcg Tab, 75 MCG PO DAILY, (Reported) Magnesium Chloride (Slow-Mag 71.5-119 mg) 1 Tab Tab, 2 TAB PO QHS, (Reported) Metoprolol Tartrate (Metoprolol Tartrate) 25 Mg Tab, 6.25 MG PO BID Omeprazole (Omeprazole) 20 Mg Cap, 20 MG PO BID, (Reported) Sucralfate (Sucralfate) 1 Gm/10 Ml Camille, 1 GM PO Q6H Scheduled PRN Docusate Sodium (Colace) 100 Mg Cap, 100 MG PO DAILY PRN for CONSTIPATION, (Reported) Hydrocortisone (Proctosol Hc) 2.5 % Cre, 1 APLCT RI DAILY PRN for HEMORRHOIDS, (Reported) Ondansetron HCl (Ondansetron HCl) 4 Mg Tab, 4 MG PO BID PRN for NAUSEA, (Reported) Allergies Coded Allergies: Codeine (Verified Adverse Reaction, Intermediate, HALLUCINATIONS, 12/03/17) TAPE (Verified Adverse Reaction, Intermediate, rips skin off, 12/03/17) Morphine (Verified Adverse Reaction, Mild, hallucinations, 12/03/17) DENA THOMAS DO Oct 19, 2018 12:48
== END 2018-10-19 13:45 | disposition home or self-care (01) | DRG 378 ==
LOC: M ED 14:35 → M ED INP 17:51 → M ICU 22:06 → M PCU 10-16 15:47
PROVIDERS: ADMIT Internal Medicine; ATTEND Internal Medicine
PROC: 30233N1 Transfusion of Nonautologous Red Blood Cells into Peripheral Vein, Percutaneous Approach (ICD-10-PCS; 2018-10-13)
PROC: 0W3P8ZZ Control Bleeding in Gastrointestinal Tract, Via Natural or Artificial Opening Endoscopic (ICD-10-PCS; principal; 2018-10-13 19:25)
PROC: 0W993ZZ Drainage of Right Pleural Cavity, Percutaneous Approach (ICD-10-PCS; 2018-10-18)
DX: K26.4 Chronic or unspecified duodenal ulcer with hemorrhage (principal); C18.9 Malignant neoplasm of colon, unspecified; C78.7 Secondary malignant neoplasm of liver and intrahepatic bile duct; E87.1 Hypo-osmolality and hyponatremia; I82.622 Acute embolism and thrombosis of deep veins of left upper extremity; D62 Acute posthemorrhagic anemia; J91.0 Malignant pleural effusion; C78.00 Secondary malignant neoplasm of unspecified lung; E03.9 Hypothyroidism, unspecified; I95.9 Hypotension, unspecified; E78.5 Hyperlipidemia, unspecified; K29.71 Gastritis, unspecified, with bleeding; K59.09 Other constipation; E87.6 Hypokalemia; E83.42 Hypomagnesemia; Z90.49 Acquired absence of other specified parts of digestive tract; Z79.01 Long term (current) use of anticoagulants; Z88.5 Allergy status to narcotic agent; Z91.048 Other nonmedicinal substance allergy status